=== PATIENT | male | born 1985 | race Caucasian/White ===

== ENCOUNTER 2021-02-25 13:46 | Outpatient (REF) | payer OTHER, SELFPAY ==
--- NOTE | ~2021-02-25 | MM_ITS ---
EXAMINATION: MM DIAGNOSTIC DIGITAL BREAST TOMOSYNTHESIS, BILATERAL US DIAGNOSTIC ULTRASOUND BREAST, BILATERAL CLINICAL INFORMATION: 35-year-old male with bilateral retroareolar tenderness for approximately one year. Transient fullness left breast, recently resolved. No prior breast imaging. COMPARISON: None (current study represents initial baseline exam). TECHNIQUE: Digital breast tomosynthesis is performed in both the craniocaudal and mediolateral oblique views along with computer-aided detection (CAD). Synthesized 2D images are generated from the tomosynthesis. Additional exaggerated right CC and additional right MLO view are provided. Ultrasound of each breast is targeted to the retroareolar and periareolar regions. Grayscale imaging and color Doppler are performed without and with harmonics. FINDINGS: There are scattered areas of fibroglandular density (ACR BI-RADS breast composition Category b). There is bilateral symmetric retroareolar mild to moderate gynecomastia pattern. There is no mass or architectural abnormality. No abnormal calcifications. The axilla and skin contours are unremarkable. Ultrasound targeted to both breasts shows no cystic or solid mass, architectural abnormality, or focal duct ectasia. No skin thickening or edema tracking in the soft tissue planes. Results are discussed with the patient at time of visit. MM/MM tomosynthesis screening BI IMPRESSION: [id number] bilateral retroareolar gynecomastia. Unremarkable bilateral breast ultrasound. ASSESSMENT: BI-RADS 2: Benign RECOMMENDATION: Patient may be managed based on the clinical impression.
== END 2021-02-25 13:47 | disposition home or self-care (01) ==
LOC: HO.MAMMO 13:46
PROVIDERS: Visit Provider Internal Medicine Endocrinology, Diabetes & Metabolism
DX: Z12.31 Encounter for screening mammogram for malignant neoplasm of breast (principal); N62 Hypertrophy of breast
CPT/HCPCS: 76642; 77063; 77067

== ENCOUNTER 2021-05-09 02:27 | Emergency (ER) | payer OTHER, SELFPAY ==
[2021-05-09 02:29] VITALS: BP 149/93; PULSE 95; RESP 18; TEMP 36.9; O2SAT 97; BMI 43.5
--- NOTE | 2021-05-09 04:09 | ED_ITS ---
HPI - Fall General Chief Complaint: Fall Stated Complaint: fall/lac Time Seen by Provider: 05/09/21 03:22 Source: patient Mode of arrival: ambulatory Limitations: no limitations History of Present Illness HPI Narrative: Patient comes emergency room complaining of multiple lacerations to the face, especially the forehead and the nose. Patient states that he tripped and hit a glass shelf with his face. Patient did not lose consciousness. Patient on blood thinners. Related Data Allergies Allergy/AdvReac Type Severity Reaction Status Date / Time No Known Allergies Allergy Unverified 03/22/20 15:26 [No Known Allergies*] Review of Systems Review of Systems: Constitutional : No Weight loss, No Fever, No Chills, No Night Sweats, No Fatigue, No Malaise ENT/Mouth : No Hearing loss, No Ear Pain, No Nasal Congestion, No Sinus Pain, No Hoarseness, No sore throat, No Rhinorrhea, No Swallowing Difficulty Eyes: No Eye Pain, No Swelling, No Redness, No Foreign Body, No Discharge, No Vision Changes Cardiovascular : No Chest Pain, No SOB, No Dyspnea on Exertion, No Orthopnea, No Edema, No Palpitations Respiratory : No Cough, No Sputum, No Wheezing, No Smoke Exposure, No Dyspnea Gastrointestinal : No Nausea, No Vomiting, No Diarrhea, No Constipation, No a bdominal Pain, No Hematochezia, No Melena Genitourinary : no irregular bleeding, No Dysuria, No Urinary Frequency, No Hematuria, No Urinary Incontinence, No Urgency, No Flank Pain, No Urinary Flow Changes, No Hesitancy Musculoskeletal : No joint pain, No Myalgias, No Joint Swelling Skin : Multiple skin lacerations to forehead and nose Neuro : No Weakness, No Numbness, No Paresthesias, No Loss of Consciousness, No Dizziness, No Headache Psych : No Anxiety/Panic, No Depression, No SI/HI/AH/VH, No Social Issues, Heme/Lymph: No Bruising, No Bleeding,No Lymphadenopathy Endocrine : No Polyuria, No Polydipsia, No Temperature Intolerance PMFSH Social History Social History Advance Directives: No Advance Directives Information Provided: Yes Physical Exam Vital Signs: Vital Signs: Last Vital Signs Temp 98.4 F 05/09/21 02:29 Pulse 95 05/09/21 02:29 Resp 18 05/09/21 02:29 BP 149/93 H 05/09/21 02:29 Pulse Ox 97 05/09/21 02:29 Body Mass Index 43.5 Const: Other: Appearance: Alert. Oriented X3. No acute distress. Eyes: Pupils equal, round and reactive to light. ENT: Pharynx normal. Neck: Normal inspection. Neck supple. No lymph nodes noted. No crepitus CVS: Normal heart rate and rhythm. Pulses normal. Normal S1 and S2 Respiratory: No respiratory distress. Breath sounds normal. No Wheezing. No rales Abdomen: Soft and nontender. No rigidity. No distention. good BS x4 Skin: Skin warm and dry. Multiple deep and superficial lacerations to the right side of the face, especially forehead, deep lacerations to the nose, lateral aspect on the right side Extremities: No lower extremity edema. No lower extremity edema. No Lacerations. No Rash Neuro: Oriented X 3. No motor deficit. No sensory deficit. Moving all extermities. No slurred speech. Course Course Course Narrative: Patient tolerated well the procedure, not all the lacerations in the face requires stitches Procedures Laceration Laceration 1: Site: face Side (If applicable): right Size (cm): 5 Description: linear and irregular Depth: simple, single layer Local Anesthetic: lidocaine 1% Amount of anesthesia used (mL): 8 Pre-repair: wound explored Skin layer closed with: nylon Size (cm): 6-0 Number of sutures: 14 Technique: simple, interrupted Laceration 2: Site: face Side (If applicable): right Size (cm): 1 Description: linear and irregular Local Anesthetic: lidocaine 1% Amount of anesthesia used (mL): 1 Skin layer closed with: nylon Size (cm): 6-0 Number of sutures: 3 Discharge Plan Discharge Clinical Impression: Laceration of face Patient Disposition: Home, Self-Care Instructions: Facial Laceration (ED) Additional Instructions: Your stitches need to be removed in 7-10 days. If you experience any significant pain, bleeding, see pus drainage, developed fever, anything abnormal, please return to the emergency room. Please follow-up with your primary care physician tomorrow. If you have any worsening or new symptoms, please return to the emergency room or call 911 Stand Alone Forms: Work/School Release
[2021-05-09] MEDS: Lidocaine HCl 2 % MPF 5 ML VIAL 15 ML INFILTRATI (04:22)
== END 2021-05-09 06:09 | disposition home or self-care (01) ==
PROVIDERS: Emergency Provider Emergency Medicine
DX: S01.21XA Laceration without foreign body of nose, initial encounter (principal); S01.81XA Laceration without foreign body of other part of head, initial encounter; W01.110A Fall on same level from slipping, tripping and stumbling with subsequent striking against sharp glass, initial encounter; Y93.9 Activity, unspecified; Y92.9 Unspecified place or not applicable; Y99.9 Unspecified external cause status
CPT/HCPCS: 12014; 99283; 99284

== ENCOUNTER 2021-05-13 14:24 | Emergency (ER) | payer OTHER, SELFPAY ==
[2021-05-13 14:42] VITALS: BP 128/75; PULSE 97; RESP 21; TEMP 37.1; O2SAT 94; BMI 43.6
--- NOTE | 2021-05-13 16:10 | ED.RECABL ---
HPI - Recheck/Abnormal Lab/Rx General Chief Complaint: General Medical Stated Complaint: wound check Time Seen by Provider: 05/13/21 15:58 Source: patient Mode of arrival: ambulatory Limitations: no limitations History of Present Illness complaint: suture/staple removal Initial visit for: laceration Returns today for: staple/stitch removal Symptoms since prior visit: no new symptoms Context: planned re-check Associated symptoms: none Related Data Previous Rx's Medication Instructions Recorded cephalexin 500 mg capsule 500 mg PO Q6H 10 Days #40 cap 05/13/21 Allergies Allergy/AdvReac Type Severity Reaction Status Date / Time No Known Allergies Allergy Unverified 03/22/20 15:26 [No Known Allergies*] Review of Systems Review of Systems: Constitutional : No Fever, No Chills, Cardiovascular : No Chest Pain, No SOB Respiratory : No Dyspnea Gastrointestinal : No abdominal pain Musculoskeletal : No Joint Swelling Skin : positive healing skin laceration, No Foreign bodies, No rash, No surrounding erythema Neuro : No Weakness, No Numbness/tingling Psych : No SI/HI/thoughts of self injury Yes all other systems are reviewed and are negative [facility] Past Medical History Attestation statement: The following information was validated with the patient. Social History Social History Advance Directives: No Advance Directives Information Provided: No Physical Exam Vital Signs: Vital Signs: Last Vital Signs Temp 98.8 F 05/13/21 14:42 Pulse 97 05/13/21 14:42 Resp 21 H 05/13/21 14:42 BP 128/75 05/13/21 14:42 Pulse Ox 94 05/13/21 14:42 Body Mass Index 43.6 vital signs have been reviewed as normal and appeared to be correct. Blood pressure normal Heart rate normal. Respiration rate normal. Temperature normal. Oxygen saturation normal. Appearance: Alert. Oriented X3. No acute distress. Head: Normal external exam. Normocephalic. Atraumatic. Eyes: PERRLA. EOMI. Conjunctiva and sclera normal. Eyelids normal. ENT: Pharynx normal. Uvula midline. Moist mucous membranes. Neck: Normal inspection. Neck supple. FROM. CVS: Normal heart rate and rhythm. Respiratory: No respiratory distress. Painless inspiration. Skin: Skin warm and dry. Normal skin color. Normal skin turgor. Patient with 14 sutures noted to the right nose with mild surrounding erytherma no purulent drainage or streaking noted. 4 sutures to the right forehead with mild surrounding erythema no purulent drainage/streaking noted. Otherwise no additional rashes/lesions/lacerations noted. Extremities: No lower extremity edema. Extremities exhibit normal range of motion. Extremities nontender. Neuro: Oriented X 3. No motor deficit. No sensory deficit. Reflexes normal. Normal steady gait. No focal neuro deficits noted. Vascular: + radial pulses/+ 2 distal pedal pulses/+2 dorsalis pedis b/l. Normal cap refill. No cyanosis noted to upper extremity nails and lower extremity toes nails. Course Course Course Narrative: Patient now status post suture removal. I removed 14 sutures to the right nose and 3 sutures to the right forehead. Mild surrounding erythema to both sites. No streaking/induration/fluctuance. Patient tolerated procedure well. Will DC home with instructions return if any new or worsening symptoms to follow up with primary care provider. Patient understands agrees with this plan. MDM - Recheck/Abnormal Lab/Rx Medical Records Attestation: I reviewed the patient's medical records. Discharge Plan Discharge Clinical Impression: Visit for suture removal Patient Disposition: Home, Self-Care Instructions: Stitches Removal (ED) Prescriptions: New cephalexin 500 mg capsule 500 mg PO Q6H 10 Days Qty: 40 RF: 0 Referrals: Troy Morris NP [Primary Care Provider] - 2 days Print Language: Malay
== END 2021-05-13 16:19 | disposition home or self-care (01) ==
PROVIDERS: Emergency Provider Emergency Medicine; PCP Nurse Practitioner Family
DX: Z48.00 Encounter for change or removal of nonsurgical wound dressing (principal); Z79.899 Other long term (current) drug therapy
CPT/HCPCS: 99283

== ENCOUNTER → 2021-09-05 09:27 | Outpatient (BNVA) | payer OTHER, SELFPAY | PROVIDERS: PCP Nurse Practitioner Family; Visit Provider Surgery Vascular Surgery | DX: I83.11 Varicose veins of right lower extremity with inflammation (principal) | CPT/HCPCS: 99202 ==

== ENCOUNTER 2021-09-11 12:51 | Outpatient (REF) | payer OTHER, SELFPAY ==
--- NOTE | ~2021-09-11 | US_ITS ---
EXAMINATION: US LOWER EXTREMITY VENOUS (REFLUX EXAM), BILATERAL CLINICAL INDICATION: This is a 36-year-old male with the venous insufficiency and varicose veins. COMPARISON: None. TECHNIQUE: Color flow triplex imaging and compression Doppler was performed to evaluate both the deep and the superficial systems bilaterally. To evaluate the superficial system, the examination was performed in the upright position. Color-flow Doppler ultrasound and compression ultrasound were utilized. In addition, maneuvers were utilized to demonstrate reflux. FINDINGS: 1. DEEP VENOUS ULTRASOUND OF THE RIGHT LOWER EXTREMITY: Common Femoral Vein: Compressible, normal respiratory variation and augmented flow. Femoral vein: Compressible, normal color flow and augmentation. Popliteal Vein: Compressible, normal augmentation. Deep Reflux: There is no evidence of reflux in the deep system in either the common femoral vein or the popliteal vein. There is no evidence of a Carrera's cyst. 2. SUPERFICIAL ULTRASOUND WITH DOPPLER OF RIGHT LOWER EXTREMITY: GREAT SAPHENOUS VEIN: Saphenofemoral Junction: 0.4 cm Mid Thigh: 0.3 cm Above Knee: 0.2 cm Below Knee: 0.3 cm Mid Calf: 0.3 cm Ankle: 0.3 cm GSV REFLUX: No evidence of reflux. DUPLICATED GREAT SAPHENOUS VEIN: None SMALL SAPHENOUS VEIN: Proximal: 0.4 cm Distal: 0.3 cm SSV REFLUX: No evidence of reflux. VEIN OF GIACOMINI: None Imaged. PERFORATORS: There is a 0.2 cm mid thigh track maintainer without reflux. VARICOSITIES: There are 0.3 mid thigh and distal thigh varicose veins, respectively. No reflux is seen. 3. DEEP VENOUS ULTRASOUND OF THE LEFT LOWER EXTREMITY: Common Femoral Vein: Compressible, normal respiratory variation and augmented flow. Femoral Vein: Compressible, normal color flow and augmentation. Popliteal Vein: Compressible, normal augmentation. Deep Reflux: There is no evidence of reflux in the deep system in either the common femoral vein or the popliteal vein. There is no evidence of a Carrera's cyst. 4. SUPERFICIAL ULTRASOUND WITH DOPPLER OF LEFT LOWER EXTREMITY: GREAT SAPHENOUS VEIN: Saphenofemoral Junction: 0.8 cm. There is no reflux. Mid Thigh: 0.5 cm. The reflux time is 1136 ms. Above Knee: 0.3 cm. There is no reflux. Below Knee: 0.2 cm. The reflux time is 1404 ms. Mid Calf: 0.3 cm. There is no reflux. Ankle: 0.3 cm. There is no reflux. GSV REFLUX: There is no reflux at the saphenofemoral junction. There are isolated areas of reflux seen. DUPLICATED GREAT SAPHENOUS VEIN: There is a 0.4 cm duplicated lateral great saphenous vein without evidence of reflux. SMALL SAPHENOUS VEIN: Proximal: 0.5 cm Distal: 0.3 cm SSV REFLUX: No evidence of reflux. VEIN OF GIACOMINI: None Imaged. PERFORATORS: There is a 0.3 cm proximal calf track maintainer without reflux. VARICOSITIES: There are multiple varicosities in the proximal distal thigh measuring 0.4 cm, 0.5 cm, 0.6 cm. These all have greater than one second of reflux. US/US venous duplex LE BI IMPRESSION: 1. There is a patent right great saphenous vein without evidence of reflux. 2. There is a patent right small saphenous vein without evidence of reflux. 3. There are varicose veins in the right thigh without evidence of reflux. 4. There is a patent left great saphenous vein without reflux at the saphenofemoral junction. Isolated areas of reflux are seen. 5. There is a patent left small saphenous vein without reflux. 6. There are multiple varicose veins in the left thigh with greater than one second of reflux.
== END 2021-09-11 12:52 | disposition home or self-care (01) ==
LOC: HO.US 12:51
PROVIDERS: Visit Provider Surgery Vascular Surgery
DX: I83.11 Varicose veins of right lower extremity with inflammation (principal)
CPT/HCPCS: 93970

== ENCOUNTER → 2021-10-03 13:04 | Outpatient (BNVA) | payer OTHER, SELFPAY | PROVIDERS: PCP Nurse Practitioner Family; Visit Provider Surgery Vascular Surgery | DX: I83.11 Varicose veins of right lower extremity with inflammation (principal); I73.00 Raynaud's syndrome without gangrene | CPT/HCPCS: 99212 ==

== ENCOUNTER 2023-02-25 09:30 | Outpatient (AMB) | payer OTHER, SELFPAY ==
--- NOTE | 2023-02-25 09:33 | A.OFFVIS_ITS ---
Intake Vital Signs 02/25/23 09:39 Height 6 ft 2 in Weight 312 lb 6 oz BMI 40.1 BP 129/74 Blood Pressure Location Lt brachial Position Sitting Pulse 100 Intake Visit Reasons: Ventral Hernia Intake Note: Patient is seen in office for evaluation and treatment of a ventral hernia. Patient c/o:onset 2yrs, has increase in size, admits to pain and discomfort, sharp pain when bending over, at times nausea, vomit, admits diarrhea and const ipation, no prior imaging Commercial Photographer Required: No Accompanied by: Self / Same As Patient Allergies ethinyl estradiol [From [facility] (91)] Allergy (Mild, Verified 02/25/23 09:39) Unknown levonorgestrel [From [facility] (91)] Allergy (Mild, Verified 02/25/23 09:39) Unknown Medication List - Last Reconciled 02/25/23 by Brandt Coto MD gabapentin 300 mg PO TID testosterone mg subcut HPI HPI Comments History of Present Illness Details 37-year-old male patient presenting for evaluation of a ventral hernia. He began to note the lump approximately 2 years ago. The lump gradually increased in size and is now causing some discomfort. The lump seems to increase in size with lifting and straining or reduced in the supine position. Denies any previous surgery in this location. He denies nausea, vomiting, fever, chills, diarrhea, or constipation. He is requesting repair this hernia. [facility] Social History Patient Tobacco Use Status: Current everyday Tobacco user Tobacco use type: Cigarette Cigarettes Per Day: 10 Review of Systems Const All systems reviewed & are unremarkable except as noted in HPI and below Denies chills, Denies fever(s), Denies headache(s), Denies poor appetite and Denies weakness ENT Denies headache(s) Card Denies chest pain, Denies irregular heart rhythm, Denies palpitations and Denies dyspnea Resp Denies cough, Denies excessive phlegm production and Denies dyspnea GI Denies abdominal pain, Denies bloating, Denies change in bowel habits, Denies constipation, Denies heartburn, Denies diarrhea, Denies nausea and Denies vomiting Denies difficulty urinating and Denies urinary frequency Musc Denies back pain, Denies muscle weakness and Denies numbness Skin/Breast Denies changing lesions and Denies unusual bruising Neuro Denies headache(s), Denies numbness, Denies paresthesias and Denies weakness Psych Denies anxiety and Denies depression Endo Denies palpitations [place]/Lymph Denies lymphadenopathy Physical Exam Const General: cooperative and no acute distress Nutritional Appearance: well nourished Orientation/consciousness: patient oriented x3 Limitations: no limitations HEENT Head: Yes normocephalic and Yes atraumatic Ears: hearing grossly normal bilaterally Resp Effort & Inspection: normal respiratory effort, no audible wheezes, no cough and no respiratory distress Cardio Jugular venous distension: no JVD GI Inspection: Yes normal to inspection Palpation (GI): Soft to palpation, nontender, no guarding, not rigid and Hernia present ventral Percussion: Yes normal to percussion Abdomen image: 1. Reducible ventral hernia measuring approximately 4.5 cm in diameter. Hernia increases in size with Valsalva maneuvers but the reduces with light pressure. There is mild tenderness to palpation. Skin Other: Warm, dry, no rash Neuro General: patient oriented x3 Extrem General: Yes no clubbing, cyanosis or edema Assessment & Plan Assessment & Plan (1) Ventral hernia without obstruction or gangrene: Code(s): K43.9 - Ventral hernia without obstruction or gangrene Plan 37-year-old male patient presenting with a gradually enlarging ventral hernia located above the umbilicus. On examination the patient has a reducible ventral hernia measuring approximately 4.5 cm in diameter. I recommended repair of this ventral hernia with mesh. After discussion of the procedure, risks, and alternatives, he consents to the surgery. He will be scheduled as a short-stay surgery at his earliest convenience. Coding Level of Care Code New Pt Level 4 (28253) Diagnoses Ventral hernia without obstruction or gangrene K43.9
[2023-02-25 09:39] VITALS: BP 129/74; PULSE 100; BMI 40.1
== END 2023-02-25 09:45 | disposition home or self-care (01) ==
PROVIDERS: PCP Nurse Practitioner Family; Referring Provider Nurse Practitioner Family; Visit Provider Surgery
DX: K43.9 Ventral hernia without obstruction or gangrene (principal)
CPT/HCPCS: 99204

== ENCOUNTER → 2023-02-25 09:30 | Outpatient (BNVA) | payer OTHER, SELFPAY | PROVIDERS: PCP Nurse Practitioner Family; Referring Provider Nurse Practitioner Family; Visit Provider Surgery | DX: K43.9 Ventral hernia without obstruction or gangrene (principal) | CPT/HCPCS: 99202 ==

== ENCOUNTER 2023-03-11 06:10 | Day surgery (SDC) | payer OTHER, SELFPAY ==
[2023-03-06 13:19] VITALS: BMI 40.1
--- NOTE | 2023-03-10 08:43 | HO.ANESPROP2 ---
Documented by User: Isatu Danielle NP 03/10/23 09:12 HPI - Anesthesia Eval Consult details Narrative: 37yo M for Hernia Repair Ventral w/mesh Methadone daily for OUD PMFSH Active Problems Active Problems: All Active Problems (Updated 03/06/23 @ 13:21 by An Cooley RN) Varicose veins of right lower extremity with inflammation (Acute) Raynauds disease (Acute) Ventral hernia without obstruction or gangrene (Acute) Past Medical History Medical History Bipolar disorder GERD (gastroesophageal reflux disease) PTSD (post-traumatic stress disorder) Raynauds disease Sleep apnea Surgical History Surgical History Hx of toe surgery Social History Social History Patient Tobacco Use Status: Current everyday Tobacco user Tobacco use type: Cigarette Cigarettes Per Day: 10 Use of substances other than those prescribed or required for medical reasons: No Are you DNR?: No Advance Directives: No Advance Directives Information Provided: Yes Advance Directives on File: No Recently lost weight without trying: No Eating poorly because of decreased appetite: No Nutrition Risks: No Nutritional Risk Meds Allergies Allergy/AdvReac Type Severity Reaction Status Date / Time No Known Allergies Allergy Verified 03/11/23 06:13 Home Medications Medication Instructions Recorded Confirmed Last Taken Type gabapentin 300 mg capsule 300 mg PO TID 09/05/21 03/06/23 03/11/23 05:00 History calcium carbonate 500 mg calcium 500 mg PO DAILY 03/06/23 03/06/23 Unknown History (1,250 mg) tablet hydroxyzine HCl 50 mg tablet 50 mg PO BID PRN Anxiety 03/06/23 03/06/23 Unknown History multivitamin 1 tab PO DAILY 03/06/23 03/06/23 Unknown History testosterone cypionate 200 mg/mL 200 mg IM QWEEK 03/06/23 03/06/23 Unknown History intramuscular oil methadone 03/10/23 03/10/23 03/11/23 05:00 History Exam Exam Date and Time: March 10, 2023 0843 Height,Weight and Vital Signs: Height 6 ft 2 in Weight 141.521 kg Assessment and Plan Assessment Anesthesia Assessment: Chart Reviewed Documented by User: Xiomy Rodríguez MD 03/11/23 07:26 PMFSH Past Medical History Medical History Bipolar disorder GERD (gastroesophageal reflux disease) PTSD (post-traumatic stress disorder) Raynauds disease Sleep apnea Surgical History Surgical History Hx of toe surgery History of Problems with Anesthesia: No Social History Social History Patient Tobacco Use Status: Current everyday Tobacco user Tobacco use type: Cigarette Cigarettes Per Day: 10 Use of substances other than those prescribed or required for medical reasons: No Are you DNR?: No Advance Directives: No Advance Directives Information Provided: Yes Advance Directives on File: No Recently lost weight without trying: No Eating poorly because of decreased appetite: No Nutrition Risks: No Nutritional Risk Meds Allergies Allergy/AdvReac Type Severity Reaction Status Date / Time No Known Allergies Allergy Verified 03/11/23 06:13 Home Medications Medication Instructions Recorded Confirmed Last Taken Type gabapentin 300 mg capsule 300 mg PO TID 09/05/21 03/06/23 03/11/23 05:00 History calcium carbonate 500 mg calcium 500 mg PO DAILY 03/06/23 03/06/23 Unknown History (1,250 mg) tablet hydroxyzine HCl 50 mg tablet 50 mg PO BID PRN Anxiety 03/06/23 03/06/23 Unknown History multivitamin 1 tab PO DAILY 03/06/23 03/06/23 Unknown History testosterone cypionate 200 mg/mL 200 mg IM QWEEK 03/06/23 03/06/23 Unknown History intramuscular oil methadone 03/10/23 03/10/23 03/11/23 05:00 History Exam Airway Mallampati Class: III TM Dist: >3cm Neck ROM: Full Loose/Missing/Broken Teeth: No Heart: RRR Lungs: CTA Assessment and Plan Assessment Anesthesia Assessment: Anesthesia Plan Discussed Final Anesthetic Review History of Problems with Anesthesia: No NPO: Yes ASA Class: III Final Preanesthetic Review: Meds/Allgs Chart Reviewed, Consent Obtained/Reviewed and Anes Risks/Benef Reviewed Patient Risk: Intermediate Procedure Risk: Low Anesthetic Plan Anesthetic Plan: GA Disposition: Standard PACU
[2023-03-11 06:27] VITALS: BP 146/92; PULSE 68; RESP 16; TEMP 36.9; O2SAT 95
[2023-03-11] MEDS: Lactated Ringers 1,000 ML 100 ML IVCONT (06:35)
--- NOTE | 2023-03-11 07:28 | MHC.SHP ---
Pre-Procedural Eval Section A Date of Service: 03/11/23 The patient is an INPATIENT: No Changes since office visit: Yes Patient answered all questions; No Cold of Flu in the past 2 weeks, No New Medical Problems and No Changes in Medication The History & Physical has been completed within 30 days and I have reviewed it.: Yes Section B Chief Complaint: Ventral hernia without obstruction or gangrene Allergies: Allergies Allergy/AdvReac Type Severity Reaction Status Date / Time No Known Allergies Allergy Verified 03/11/23 06:13 Plan Diagnosis/Plan: Unchanged I have reviewed the history and physical and performed a pertinent physical examination on my patient. No changes have occurred unless specified. Time Spent With Patient Time: Total time managing care of this patient today ____ minutes.
--- NOTE | 2023-03-11 08:41 | P.OP_ITS ---
Operative Note Operative Note Date of Service: 03/11/23 Narrative: Preoperative diagnosis: Ventral hernia Postoperative diagnosis: Same Procedure: Repair of ventral hernia with mesh Surgeon: Brandt Coto MD Fitting Room Associate: SHU Delatorre, SHU Bonds Anesthesia: General endotracheal Indications for procedure: 37-year-old male patient presenting with a lump in the upper abdomen just above the umbilicus measuring approximately 6 cm in diameter. The lump with increase in size with lifting and straining and causes mild discomfort. Operative findings: 6 cm fascial defect just above the umbilicus Specimen: None Estimated blood loss: 2 mL Complications: None Procedure details: Patient was brought to the OR and placed in a supine position. After administering general anesthesia patient's abdomen was prepped with ChloraPrep and draped in a sterile fashion. A surgical time-out was called the consent confirmed. Patient received preoperative antibiotics and Venodyne boots were in place. Local anesthesia was infiltrated in the midline just above the hernia these incision was then carried down through subcutaneous tissue up to the hernia sac. Hernia sac was then defined down to the fascial edge. The hernia contents were then reduced into the abdominal cavity. A preperitoneal space was then dissected below the fascia. A 2nd hole slightly inferior to the larger hole was identified. These were connected into 1 large hernia defect. An 8 cm round Ventralex mesh was then obtained. The mesh was deployed within the preperitoneal space. This was then secured in 4 quadrants using 1 Tycron sutures. The fascia was then closed over the mesh using [id number] 1 Tycron sutures. Additional local was infiltrated to the fascia subcutaneous tissue. Wounds were then irrigated with saline solution and suctioned dry. Dermis was then reapproximated using interrupted 3-0 Polysorb sutures. Skin was closed using a running subcuticular 4-0 Polysorb suture. Steri-Strips, 2 x 2 gauze and Tegaderm were then applied. The patient tolerated the procedure well. Sponge, instrument, needle counts reported as correct. The patient was transferred to PACU in stable condition.
[2023-03-11 08:57] VITALS: BP 166/86; PULSE 92; RESP 16; TEMP 36.6; O2SAT 95
[2023-03-11 09:02] VITALS: BP 157/80; PULSE 90; RESP 16; O2SAT 95
[2023-03-11 09:07] VITALS: BP 149/88; PULSE 87; RESP 18; O2SAT 95
[2023-03-11] MEDS: oxyCODONE HCl Immed Release 5 MG TABLET 10 MG PO (09:11)
[2023-03-11 09:12] VITALS: BP 147/85; PULSE 81; RESP 18; O2SAT 95
[2023-03-11 09:27] VITALS: BP 143/84; PULSE 83; RESP 18; TEMP 36.8; O2SAT 95
== END 2023-03-11 09:54 | disposition home or self-care (01) ==
PROVIDERS: PCP Nurse Practitioner Family; Visit Provider Surgery
PROC: (CPT 49593; principal; 2023-03-11 07:30)
DX: K43.9 Ventral hernia without obstruction or gangrene (principal); K21.9 Gastro-esophageal reflux disease without esophagitis; I73.00 Raynaud's syndrome without gangrene; F31.9 Bipolar disorder, unspecified; G47.30 Sleep apnea, unspecified; F43.10 Post-traumatic stress disorder, unspecified; Z79.899 Other long term (current) drug therapy; F17.210 Nicotine dependence, cigarettes, uncomplicated
CPT/HCPCS: 49593; C1781; J0131; J0330; J0690; J1100; J1170; J1885; J2250; J2405; J2795; J3010

== ENCOUNTER → 2023-03-11 06:10 | Outpatient (BNV) | payer OTHER, SELFPAY | PROVIDERS: PCP Nurse Practitioner Family; Visit Provider Surgery | DX: K43.9 Ventral hernia without obstruction or gangrene (principal) | CPT/HCPCS: 49593 ==

== ENCOUNTER 2023-03-20 10:43 | Outpatient (AMB) | payer OTHER, SELFPAY ==
--- NOTE | 2023-03-20 11:05 | MHC.OFFVIS ---
Intake Vital Signs 03/20/23 11:10 Height 6 ft 2 in Weight 310 lb 13.628 oz BMI 39.9 BP 130/82 Blood Pressure Location Lt brachial Position Sitting Intake Visit Reasons: S/P ventral hernia repair w/mesh Intake Note: Patient is seen in office for post op assessment post ventral hernia repair. 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 He reports feeling a pop in his left chest when coughing. He still has some pain but is much improved. He denies nausea, vomiting, fever or chills. PFSH Medical History PTSD (post-traumatic stress disorder) Sleep apnea GERD (gastroesophageal reflux disease) Raynauds disease Bipolar disorder Surgical History H/O ventral hernia repair (03/11/23) Hx of toe surgery Social History Patient Tobacco Use Status: Current everyday Tobacco user Tobacco use type: Cigarette Cigarettes Per Day: 10 Physical Exam Vital Signs: Last Vital Signs BP 130/82 03/20/23 11:10 BMI result Body Mass Index 39.9 Const General: cooperative Nutritional Appearance: average body habitus Orientation/consciousness: patient oriented x3 Resp Effort & Inspection: normal respiratory effort GI Other: Midline incision is clean, dry, and intact without redness or discharge. There is the expected surrounding swelling consistent with a healing ridge. No evidence of recurrent hernia. No evidence of wound infection. Neuro General: patient oriented x3 Extrem General: Yes normal to inspection Assessment & Plan Assessment & Plan (1) Ventral hernia without obstruction or gangrene: Code(s): K43.9 - Ventral hernia without obstruction or gangrene Plan Patient returns 1 week following repair of a ventral hernia with mesh. He tolerated the procedure well the wounds are healing nicely. He should continue to avoid lifting greater than 10 lb and return in 4 weeks for follow-up examination. He is welcome to call sooner for any new concerns. Coding Level of Care Code Global (47632) Diagnoses Ventral hernia without obstruction or gangrene K43.9
[2023-03-20 11:10] VITALS: BP 130/82; BMI 39.9
== END 2023-03-20 11:23 | disposition home or self-care (01) ==
PROVIDERS: PCP Nurse Practitioner Family; Visit Provider Surgery
DX: K43.9 Ventral hernia without obstruction or gangrene (principal)
CPT/HCPCS: 99213

== ENCOUNTER → 2023-03-20 10:43 | Outpatient (BNVA) | payer OTHER, SELFPAY | PROVIDERS: PCP Nurse Practitioner Family; Visit Provider Surgery | DX: Z48.815 Encounter for surgical aftercare following surgery on the digestive system (principal) | CPT/HCPCS: 99212 ==

== ENCOUNTER 2023-03-27 09:54 | Outpatient (AMB) | payer OTHER, SELFPAY ==
--- NOTE | 2023-03-27 09:58 | MHC.OFFVIS ---
Intake Vital Signs 03/27/23 10:04 Height 6 ft 2 in Weight 310 lb 13.628 oz BMI 39.9 Pulse 77 Intake Visit Reasons: Abd pain Intake Note: Patient is seen in office for wound check post ventral hernia repair. 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 He noted increased swelling in the incision was concerned that the hernia had recurred. He reports being constipated but did move his bowels today. He has been taking stool softener which is making his stool mushy like soft serve ice cream. [facility] Medical History PTSD (post-traumatic stress disorder) Sleep apnea GERD (gastroesophageal reflux disease) Raynauds disease Bipolar disorder Surgical History H/O ventral hernia repair (03/11/23) Hx of toe surgery Social History Patient Tobacco Use Status: Current everyday Tobacco user Tobacco use type: Cigarette Cigarettes Per Day: 10 Physical Exam Vital Signs: Last Vital Signs Pulse 77 03/27/23 10:04 BMI result Body Mass Index 39.9 Const General: healthy appearing Nutritional Appearance: average body habitus Orientation/consciousness: patient oriented x3 Limitations: no limitations Resp Effort & Inspection: normal respiratory effort GI Other: Midline incision is clean, dry, and intact. There is a palpable healing ridge or possible small seroma noted below the incision, essentially unchanged from his prior examination. No changes are noted with Valsalva maneuvers. There is no skin change including erythema or warmth to indicate an underlying infection. Skin Other: Warm, dry, no rash Neuro General: patient oriented x3 Assessment & Plan Assessment & Plan (1) Ventral hernia without obstruction or gangrene: Code(s): K43.9 - Ventral hernia without obstruction or gangrene Plan 37-year-old male patient returning for re-evaluation of his abdominal incision due to swelling. Exam reveals postoperative changes suggestive of a small seroma verses normal healing ridge. This should gradually soften over the next month. No changes are noted to indicate an underlying infection or recurrent hernia. He will follow up on his previously scheduled appointment on 04/14/2023. He is welcome to call sooner for any new concerns. Coding Level of Care Code Global (07243) Diagnoses Ventral hernia without obstruction or gangrene K43.9
[2023-03-27 10:04] VITALS: PULSE 77; BMI 39.9
== END 2023-03-27 10:16 | disposition home or self-care (01) ==
PROVIDERS: PCP Nurse Practitioner Family; Visit Provider Surgery
DX: K43.9 Ventral hernia without obstruction or gangrene (principal)
CPT/HCPCS: 99213

== ENCOUNTER → 2023-03-27 09:54 | Outpatient (BNVA) | payer OTHER, SELFPAY | PROVIDERS: PCP Nurse Practitioner Family; Visit Provider Surgery | DX: Z48.815 Encounter for surgical aftercare following surgery on the digestive system (principal) | CPT/HCPCS: 99212 ==

== ENCOUNTER 2023-04-14 09:36 | Outpatient (AMB) | payer OTHER, SELFPAY ==
--- NOTE | 2023-04-14 09:55 | MHC.OFFVIS ---
Intake Vital Signs 04/14/23 10:00 Height 6 ft 2 in Weight 319 lb 10.724 oz BMI 41.0 BP 120/82 Blood Pressure Location Lt brachial Position Sitting Intake Visit Reasons: one month, post ventral hernia repair w/mesh Intake Note: Patient is seen in office for one month follow up visit, post ventral hernia repair. 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 He feels improved with less abdominal pain but does have occasional discomfort when pushing on the incision. He also occasionally has some discomfort on either side of the incision approximately 10-12 cm beyond. He denies nausea, vomiting, fever or chills. His bowels are normal. [facility] Medical History PTSD (post-traumatic stress disorder) Sleep apnea GERD (gastroesophageal reflux disease) Raynauds disease Bipolar disorder Surgical History H/O ventral hernia repair (03/11/23) Hx of toe surgery Social History Patient Tobacco Use Status: Current everyday Tobacco user Tobacco use type: Cigarette Cigarettes Per Day: 10 Physical Exam Const General: healthy appearing Nutritional Appearance: average body habitus Orientation/consciousness: patient oriented x3 Limitations: no limitations Resp Effort & Inspection: normal respiratory effort GI Other: Midline incision is clean, dry, and intact. There is a palpable healing ridge with no palpable seroma/hematoma and no hernia recurrence noted with Valsalva maneuvers. Skin Other: Warm, dry, no rash Neuro General: patient oriented x3 Assessment & Plan Assessment & Plan (1) Ventral hernia without obstruction or gangrene: Code(s): K43.9 - Ventral hernia without obstruction or gangrene Plan 37-year-old male patient status post repair of a ventral hernia with mesh. He tolerated the procedure well and his wounds are healing nicely. He may resume normal activity without restriction and should follow up as needed. Coding Level of Care Code Global (29952) Diagnoses Ventral hernia without obstruction or gangrene K43.9
[2023-04-14 10:00] VITALS: BP 120/82; BMI 41.0
== END 2023-04-14 10:28 | disposition home or self-care (01) ==
PROVIDERS: PCP Nurse Practitioner Family; Visit Provider Surgery
DX: K43.9 Ventral hernia without obstruction or gangrene (principal)
CPT/HCPCS: 99212

== ENCOUNTER → 2023-04-14 09:36 | Outpatient (BNVA) | payer OTHER, SELFPAY | PROVIDERS: PCP Nurse Practitioner Family; Visit Provider Surgery | DX: Z09 Encounter for follow-up examination after completed treatment for conditions other than malignant neoplasm (principal); Z87.19 Personal history of other diseases of the digestive system | CPT/HCPCS: 99212 ==

== ENCOUNTER 2023-11-15 04:16 | Emergency (ER) | payer OTHER, SELFPAY ==
--- NOTE | ~2023-11-15 | XR_ITS ---
EXAMINATION: XR HAND/WRIST, LEFT CLINICAL INFORMATION: History of fall with left wrist and hand pain. COMPARISON: None TECHNIQUE: PA, lateral, and oblique views of the left hand and wrist. FINDINGS: Mildly impacted fracture of the distal radial metaphysis. There is slight buckling of the posteromedial metaphyseal cortex. Also, thin fracture lucency extends longitudinally to involve the lunate facet of the radial articular surface. There is no significant incongruity of the articular surface. There is approximately 0.2 cm of acquired ulna positive variance. The radiocarpal, midcarpal and carpometacarpal joint spaces are maintained. No evidence of carpal bone fracture or carpal subluxation. Metacarpals and phalanges are intact. Soft tissues are mildly swollen around the region of the wrist. XR/XR hand wrist LT IMPRESSION: Acute mildly impacted fracture of the distal radial metaphysis and epiphysis without significant displacement of fragments. No evidence of carpal bone injury.
[2023-11-15 04:26] VITALS: BP 137/81; PULSE 86; RESP 16; TEMP 37.1; O2SAT 98; BMI 38.5
[2023-11-15 06:37] VITALS: BP 133/61; PULSE 64; RESP 18; TEMP 36.4; O2SAT 100
[2023-11-15] MEDS: Acetaminophen 325 MG TABLET 975 MG PO (07:51)
[2023-11-15] MEDS: Ibuprofen 400 MG TABLET PO (07:51)
--- NOTE | 2023-11-15 08:35 | ED_ITS ---
HPI - Extremity Problem General Chief complaint: Extremity Injury, Upper Stated complaint: left wrist swollen Time Seen by Provider: 11/15/23 07:14 Source: patient Mode of arrival: ambulatory History of Present Illness HPI Narrative: 38-year-old male who states he got up in the middle the night tripped and landed on his left hand, he is right-hand dominant and there is now pain at the left wrist with mild swelling, no numbness or tingling and able to move fingers. Related Data Home Medications ?Medication ?Instructions ?Recorded ?Confirmed gabapentin 300 mg capsule 300 mg PO TID 09/05/21 03/27/23 calcium carbonate 500 mg PO DAILY 03/06/23 03/27/23 hydroxyzine HCl 50 mg tablet 50 mg PO BID PRN Anxiety 03/06/23 03/27/23 multivitamin 1 tab PO DAILY 03/06/23 03/27/23 testosterone cypionate 200 mg/mL 200 mg IM QWEEK 03/06/23 03/27/23 intramuscular oil methadone 03/10/23 03/27/23 Previous Rx's ?Medication ?Instructions ?Recorded oxycodone 5 mg tablet 5 mg PO Q6H PRN pain (scale score 03/11/23 7-10) #15 tabs Allergies Allergy/AdvReac Type Severity Reaction Status Date / Time No Known Allergies Allergy Verified 11/15/23 04:29 Review of Systems Review of Systems: Pertinent positives and negatives as stated in HPI [facility] Past Medical History Source: nursing notes reviewed Medical History PTSD (post-traumatic stress disorder) Sleep apnea GERD (gastroesophageal reflux disease) Raynauds disease Bipolar disorder Surgical History H/O ventral hernia repair (03/11/23) Hx of toe surgery Social History Social History Patient Tobacco Use Status: Current everyday Tobacco user Tobacco use type: Cigarette Cigarettes Per Day: 10 Advance Directives: No Advance Directives Information Provided: No Do you have a plan to hurt others: No Plan Physical Exam Vital Signs: Vital Signs: Last Vital Signs Temp 97.6 F 11/15/23 06:37 Pulse 64 11/15/23 06:37 Resp 18 11/15/23 06:37 BP 133/61 11/15/23 06:37 Pulse Ox 100 11/15/23 06:37 O2 Del Method Room Air 11/15/23 06:37 BMI result Body Mass Index 38.5 VITAL SIGNS: Reviewed. GENERAL: Well developed, well nourished, in no acute distress. HEAD: Normocephalic/atraumatic EYES: PERRLA, EOMI LUNGS: Normal breath sounds. No adventitious sounds or accessory muscle use. SpO2<100> CARDIOVASCULAR: Regular rate and rhythm without noted murmurs ABDOMEN: Soft, non-tender, non-distended with bowel sounds. MUSCULOSKELETAL: No tenderness, deformities, or effusions noted on gross inspection. EXTREMITIES: No cyanosis, clubbing or edema. LEFT WRIST: Mild swelling at the radial aspect, full range of motion of fingers, good capillary refill and sensation palpable pulse SKIN: Inspection of the skin reveals no rashes NEUROLOGIC: Alert and oriented x 4. Strength and sensation to light touch were grossly intact x 4. Medications Administered Discontinued Medications Generic Name Dose Route Start Last Admin Trade Name Freq PRN Reason Stop Dose Admin Acetaminophen 975 mg 11/15/23 07:31 11/15/23 07:51 Acetaminophen 325 Mg Tablet PO 11/15/23 07:32 975 mg ONCE ONE Administration Ibuprofen 400 mg 11/15/23 07:31 11/15/23 07:51 Ibuprofen 400 Mg Tablet PO 11/15/23 07:32 400 mg ONCE ONE Administration Medical Decision Making Medical Decision Making MDM Narrative: 38-year-old male with history and clinical presentation, DDX: Fracture versus dislocation X-ray positive for mildly impacted fracture of the distal radial metaphysis without significant displacement, patient placed in a sugar-tong and provided with a sling and given combination analgesics as well as an ice pack. He is otherwise discharged with instructions to follow-up with orthopedics by calling the office on Thursday morning to set up an appointment. Differential Diagnosis Differential Diagnoses: The differential diagnosis associated with the presentation includes Please see the discussion above Admission/Observation Consideration of admission/observation: Escalation of care including admission/observation considered Please see the discussion above Radiology Impression Discussion of test interpretation with radiology: I have reviewed the radiologist's reading. Radiologist Impression: Please see the discussion above External Record Review External record reviewed: Outpatient record, Prior outpatient labs and Prior outpatient radiology Critical Care Time Critical Care Time Critical Care Time: Yes Total Critical Care Time: 30 Attestation: I personally attest to this time spent taking care of the patient. Discharge Plan Discharge Clinical Impression: Closed left radial fracture Patient Disposition: Home, Self-Care Instructions: Arm Fracture in Adults (ED), Splint Care (ED), How to Use a Sling (ED) Additional Instructions: 1. Tylenol 1000 mg, orally, every 6 hours as needed for pain control. Do not exceed 4000 mg within 24 hours. 2. Ibuprofen 400 mg, orally with milk or food, every 6 hours as needed for pain control. 3. Ice for 10-15 minutes, 3 to 4 times a day as needed for additional pain relief. 4. Please call the orthopedic office on Thursday to set up an appointment for re-evaluation. Return to the ER for any worsening symptoms. Prescriptions: No Action hydroxyzine HCl 50 mg Tablet 50 mg PO BID PRN (Reason: Anxiety) testosterone cypionate 200 mg/mL oil 200 mg IM QWEEK multivitamin Tablet 1 tab PO DAILY calcium carbonate 500 mg calcium (1,250 mg) Tablet 500 mg PO DAILY methadone oxycodone 5 mg tablet 5 mg PO Q6H PRN (Reason: pain (scale score 7-10)) Qty: 15 0RF Rx Instructions: Partial Fill upon patient request. gabapentin 300 mg capsule 300 mg PO TID Referrals: Troy Morris MD [Primary Care Provider] - Иван Junior MD [Physician] - (Placed in sugar-tong, isolated left radius fracture) Print Language: Cypriot
[2023-11-15 08:59] VITALS: BP 133/61; PULSE 64; RESP 18; TEMP 36.4; O2SAT 100
== END 2023-11-15 09:00 | disposition home or self-care (01) ==
PROVIDERS: Emergency Provider Student in an Organized Health Care Education/Training Program; PCP Internal Medicine Endocrinology, Diabetes & Metabolism
DX: S52.92XA Unspecified fracture of left forearm, initial encounter for closed fracture (principal); M25.532 Pain in left wrist; W01.0XXA Fall on same level from slipping, tripping and stumbling without subsequent striking against object, initial encounter; Y93.9 Activity, unspecified; Y92.009 Unspecified place in unspecified non-institutional (private) residence as the place of occurrence of the external cause; Y99.8 Other external cause status; Z79.899 Other long term (current) drug therapy
CPT/HCPCS: 29125; 73110; 73130; 99283; 99284

== ENCOUNTER 2023-11-17 08:16 | Outpatient (AMB) | payer OTHER, SELFPAY ==
--- NOTE | 2023-11-17 08:32 | MHC.OFFVIS ---
Intake Visit Reasons: FC-Closed left radial fracture Intake Note: Ranulfo is a 38 year old right hand dominant male who presents today for a evaluation of his left wrist injury, DOI 11/14/23. Patient reports he woke up in the middle of the night and he tripped and fell on his left arm. He states that his pain is mainly having a lot of selling and some pain when he moves his hand a certain way. Allergies No Known Allergies Allergy (Verified 11/17/23 08:32) HPI HPI FC-Closed left radial fracture: Details: 38-year-old right hand dominant male who presents in the office today, as a new patient, for an evaluation of left hand pain. Patient presented to the ED on 11/15/2023 status post getting up in the middle of the night when he tripped and fell landing on his left upper extremity. X-rays were obtained. Patient was placed in a sugar-tong splint and given a sling. While in the office today he confirms a significant amount of edema and some pain when moving his hand in certain directions. [facility] Medical History PTSD (post-traumatic stress disorder) Sleep apnea GERD (gastroesophageal reflux disease) Raynauds disease Bipolar disorder Surgical History H/O ventral hernia repair (03/11/23) Hx of toe surgery Social History (Updated 11/17/23 @ 08:34 by Mimi Trejo) Alcohol intake: never Patient Tobacco Use Status: Current everyday Tobacco user Tobacco use type: Cigarette Cigarettes Per Day: 10 Current occupational status: unemployed Current occupation: right hand dominant Review of Systems Const All systems reviewed & are unremarkable except as noted in HPI and below Physical Exam Const General: cooperative and no acute distress Orientation/consciousness: patient oriented x3 Resp Effort & Inspection: normal respiratory effort and able to speak in complete sentences Cardio Peripheral pulses: Peripheral pulses 2+ throughout Skin General skin exam: no rashes or lesions noted Neuro General: patient oriented x3 Extrem Other: Left hand: Normal to inspection. No ecchymosis, erythema, or edema. Tenderness to palpation at the distal radius. Able to perform full finger flexion, extension, abduction, adduction, finger cross, okay sign, and thumbs up without deficit. Able to make a closed fist. Sensation intact. Capillary refill is brisk. Radial pulse intact. Office Procedures Casting/Splints 07507-Csfn/Wrist Cast Application Procedure code (CPT) selection complete Fracture Care Fracture Billing Code: Fracture Billing Code Assessment & Plan Assessment & Plan (1) Fracture of left distal radius: Code(s): S52.502A - Unspecified fracture of the lower end of left radius, initial encounter for closed fracture Category: Medical Qualifiers: Encounter type: initial encounter Fracture morphology: unspecified fracture morphology Fracture type: closed Qualified Code(s): S52.502A - Unspecified fracture of the lower end of left radius, initial encounter for closed fracture Plan Mr. Theodore is a 38-year-old right hand dominant male who presents in the office today, as a new patient, for an evaluation of left hand pain. Patient presented to the ED on 11/15/2023 status post getting up in the middle of the night when he tripped and fell landing on his left upper extremity. X-rays were obtained. Patient was placed in a sugar-tong splint and given a sling. While in the office today he confirms a significant amount of edema and some pain when moving his hand in certain directions. Patient was placed into a custom made short arm cast. Follow up will be in 1 week with cast off repeat x-rays to monitor for any displacement, or sooner if needed. X-rays of the left wrist/hand which were obtained while in the office today and were reviewed by me, Stormy Jimenes PA-C, redemonstrated a left distal radius fracture. X-rays of the left wrist, obtained on 11/15/2023 revealed: Acute mildly impacted fracture of the distal radial metaphysis and epiphysis without significant displacement of fragments. Orders: Orders XR wrist LT min 3V Today M25.539 - Pain in unspecified wrist Patient Instructions: Scribed by Beth Parker medical research scientist, for Stormy Jimenes PA-C on 11/17/2023 at 8:34 am, EST. Coding Level of Care Code New Pt Level 4 (88762) Diagnoses Closed fracture of distal end of left radius, unspecified fracture morphology, initial encounter S52.502A Encounter type: initial encounter Fracture morphology: unspecified fracture morphology Fracture type: closed CPT Codes Casting - CPT: 33261-Zywx/Wrist Cast Application ([id number]) Fracture Care - Fracture Billing Code: Fracture Billing Code ([id number])
== END 2023-11-17 09:19 | disposition home or self-care (01) ==
PROVIDERS: PCP Internal Medicine Endocrinology, Diabetes & Metabolism; Visit Provider Physician Assistant
DX: S52.502A Unspecified fracture of the lower end of left radius, initial encounter for closed fracture (principal)
CPT/HCPCS: 25600; 99203

== ENCOUNTER 2023-11-17 10:13 | Outpatient (REF) | payer OTHER, SELFPAY ==
--- NOTE | ~2023-11-17 | XR_ITS ---
EXAMINATION: XR WRIST, LEFT CLINICAL INFORMATION: Pain in the wrist COMPARISON: Prior x-ray 11/15/2023. TECHNIQUE: PA, lateral, and oblique views of the left wrist. FINDINGS: Minimally displaced intra-articular fracture the distal radius redemonstrated unchanged in alignment. There is slight posterior displacement of the distal radius fracture appreciated on the lateral projection. Remaining bones joints and soft tissues unremarkable.. XR/XR wrist LT min 3V IMPRESSION: Intra-articular distal radius fracture unchanged in alignment.
== END 2023-11-17 10:14 | disposition home or self-care (01) ==
LOC: HO.HOSX 10:13
PROVIDERS: Visit Provider Physician Assistant
DX: S52.592A Other fractures of lower end of left radius, initial encounter for closed fracture (principal); W18.30XA Fall on same level, unspecified, initial encounter; Y93.89 Activity, other specified; Y92.009 Unspecified place in unspecified non-institutional (private) residence as the place of occurrence of the external cause; Y99.9 Unspecified external cause status
CPT/HCPCS: 25600; 73110; 99202

== ENCOUNTER 2023-11-24 09:37 | Outpatient (REF) | payer OTHER, SELFPAY ==
--- NOTE | ~2023-11-24 | XR_ITS ---
EXAMINATION: XR WRIST, LEFT CLINICAL INFORMATION: Pain in nonspecified wrist. COMPARISON: 11/17/2023 TECHNIQUE: PA, lateral, and oblique views of the left wrist. FINDINGS: Redemonstration of a minimally displaced intra-articular fracture of the distal radius, unchanged in alignment. Redemonstration of slight posterior displacement of the distal radial fracture on the lateral view. Fracture lines are less conspicuous indicating some interval bridging callus formation. XR/XR wrist LT min 3V IMPRESSION: Redemonstration of a minimally displaced intra-articular fracture of the distal radius unchanged in alignment. Fracture lines are less conspicuous indicating some interval bridging callus formation.
== END 2023-11-24 09:38 | disposition home or self-care (01) ==
LOC: HO.HOSX 09:37
PROVIDERS: PCP Internal Medicine Endocrinology, Diabetes & Metabolism; Visit Provider Physician Assistant
DX: S52.502D Unspecified fracture of the lower end of left radius, subsequent encounter for closed fracture with routine healing (principal); X58.XXXD Exposure to other specified factors, subsequent encounter
CPT/HCPCS: 29085; 73110; 99212

== ENCOUNTER 2023-11-24 09:37 | Outpatient (AMB) | payer OTHER, SELFPAY ==
--- NOTE | 2023-11-24 09:55 | MHC.OFFVIS ---
Intake Visit Reasons: OV-Closed left radial fracture-cast off/w/xray Intake Note: Ranulfo is a 38 year old right hand dominant male who presents today for a evaluation of his left wrist injury, DOI 11/14/23. Cast was removed and x rays were updated. Patient reports he is doing well, he noticed some swelling when he had the cast but other times it felt loose. Still having tingling in his left thumb, he was wondering if it was from the cast, however since its removed he continues to have that sensation. Patient reports when he drops an item and when he tries to catch it he feels a tingling/electric sensation in his thumb down to the radial aspect of the wrist. Allergies No Known Allergies Allergy (Verified 11/24/23 10:01) HPI HPI OV-Closed left radial fracture-cast off/w/xray: Details: 38-year-old right hand dominant male who presents in the office today for a follow up of a left distal radius fracture, which occurred on 11/14/2023. I last saw the patient in the office on 11/17/2023 when he was placed in a short arm cast. While in the office today the patient reports he is doing well. He confirms intermittent mild edema while in the cast. Confirms tingling in the left thumb in and out of the cast. He also describes a tingling or electric sensation when dropping items or attempting to catch items with his left hand. These motions cause this sensation to radiate down from the left thumb to the radial aspect of the left wrist. [facility] Medical History PTSD (post-traumatic stress disorder) Sleep apnea GERD (gastroesophageal reflux disease) Raynauds disease Bipolar disorder Surgical History H/O ventral hernia repair (03/11/23) Hx of toe surgery Social History (Updated 11/17/23 @ 08:34 by Mimi Trejo) Alcohol intake: never Patient Tobacco Use Status: Current everyday Tobacco user Tobacco use type: Cigarette Cigarettes Per Day: 10 Current occupational status: unemployed Current occupation: right hand dominant Review of Systems Const All systems reviewed & are unremarkable except as noted in HPI and below Physical Exam Const General: cooperative and no acute distress Orientation/consciousness: patient oriented x3 Resp Effort & Inspection: normal respiratory effort and able to speak in complete sentences Cardio Peripheral pulses: Peripheral pulses 2+ throughout Skin General skin exam: no rashes or lesions noted Neuro General: patient oriented x3 Extrem Other: Left hand: Normal to inspection. No ecchymosis, erythema, or edema. Tenderness to palpation at the distal radius. Able to perform full finger flexion, extension, abduction, adduction, finger cross, okay sign, and thumbs up without deficit. Able to make a closed fist. Sensation intact. Capillary refill is brisk. Radial pulse intact. Office Procedures Casting/Splints Other Splint (thermal molded splint off the shelf) Additional procedure code (CPT) needed Assessment & Plan Assessment & Plan (1) Fracture of left distal radius: Code(s): S52.502A - Unspecified fracture of the lower end of left radius, initial encounter for closed fracture Category: Medical Qualifiers: Encounter type: subsequent encounter Fracture healing: with routine healing Fracture morphology: unspecified fracture morphology Fracture type: closed Qualified Code(s): S52.502D - Unspecified fracture of the lower end of left radius, subsequent encounter for closed fracture with routine healing Plan Mr. Theodore is a 38-year-old right hand dominant male who presents in the office today for a follow up of a left distal radius fracture, which occurred on 11/14/2023. I last saw the patient in the office on 11/17/2023 when he was placed in a short arm cast. While in the office today the patient reports he is doing well. He confirms intermittent mild edema while in the cast. Confirms tingling in the left thumb in and out of the cast. He also describes a tingling or electric sensation when dropping items or attempting to catch items with his left hand. These motions cause this sensation to radiate down from the left thumb to the radial aspect of the left wrist. X-rays were obtained in the office today revealing no further displacement of the fracture; therefore, this may be treated nonoperatively. He was placed in an off the shelf thermal molded splint. He was instructed to treat this like a cast. He may come out for showering and hand washing only and then must return in to the thermal molded splint immediately. Follow up will be in 2 weeks with repeat x-rays, or sooner if needed. X-rays of the left wrist which were obtained while in the office today and were reviewed by me, Stormy Jimenes PA-C, redemonstration of a left distal radius fracture with no further displacement. Orders: Orders XR wrist LT min 3V Today M25.539 - Pain in unspecified wrist XR wrist LT min 3V 11/17/23 M25.539 - Pain in unspecified wrist Patient Instructions: Scribed by Beth Parker certified medical biller, for Stormy Jimenes PA-C on 11/24/2023 at 9:49 am, EST. Coding Level of Care Code Global (05289) Diagnoses Closed fracture of distal end of left radius with routine healing, unspecified fracture morphology, subsequent encounter S52.502D Encounter type: subsequent encounter Fracture healing: with routine healing Fracture morphology: unspecified fracture morphology Fracture type: closed
== END 2023-11-24 10:38 | disposition home or self-care (01) ==
PROVIDERS: PCP Internal Medicine Endocrinology, Diabetes & Metabolism; Visit Provider Physician Assistant
DX: S52.502D Unspecified fracture of the lower end of left radius, subsequent encounter for closed fracture with routine healing (principal)
CPT/HCPCS: 29085; 99024

== ENCOUNTER 2023-12-11 08:28 | Outpatient (REF) | payer OTHER, SELFPAY ==
--- NOTE | ~2023-12-11 | XR_ITS ---
EXAMINATION: XR WRIST, LEFT CLINICAL INFORMATION: Pain in unspecified wrist COMPARISON: None available. TECHNIQUE: PA, lateral, and oblique views of the left wrist. FINDINGS: Again seen is a minimally displaced intra-articular fracture of the distal radius, unchanged in alignment. Again seen is slight posterior displacement of the distal radial fracture on the lateral view. Sclerosis is seen at the fracture sites. XR/XR wrist LT min 3V IMPRESSION: Healing minimally displaced intra-articular fracture of the distal radius.
== END 2023-12-11 08:29 | disposition home or self-care (01) ==
LOC: HO.HOSX 08:28
PROVIDERS: Visit Provider Physician Assistant
DX: M25.532 Pain in left wrist (principal); S52.502D Unspecified fracture of the lower end of left radius, subsequent encounter for closed fracture with routine healing; X58.XXXD Exposure to other specified factors, subsequent encounter
CPT/HCPCS: 73110; 99212

== ENCOUNTER 2023-12-11 08:34 | Outpatient (AMB) | payer OTHER, SELFPAY ==
[2023-12-11 08:51] VITALS: BMI 38.5
--- NOTE | 2023-12-11 08:51 | A.OFFVIS_ITS ---
Vital Signs 12/11/23 08:51 Height 6 ft 2 in Weight 300 lb BMI 38.5 Intake Visit Reasons: OV - Left Distal Radius Fx 11/14/23 Intake Note: Ranulfo is a 38 year old right hand dominant male who presents today for a evaluation of his left wrist injury, DOI 11/14/23. Patient reports he is doing well, however feeling some discomfort and pain with little movements. He noticed a little bump on the dorsal aspect of the wrist. Patient states having some numbness in his thumb. Allergies No Known Allergies Allergy (Verified 12/11/23 08:51) HPI HPI OV - Left Distal Radius Fx 11/14/23: Details: 38-year-old right hand dominant male who presents in the office today for a follow-up of a left distal radius fracture, which occurred on 11/14/2023. I last saw the patient in the office on 11/24/2023 when it was decided to proceed with non-operative treatment. He was placed in a thermal molded splint. While in the office today the patient reports he is doing well. He confirms some discomfort and pain with slight movements. He claims to have a bump on the dorsal aspect of the left wrist. He also reports some numbness in the left thumb. [facility] Medical History PTSD (post-traumatic stress disorder) Sleep apnea GERD (gastroesophageal reflux disease) Raynauds disease Bipolar disorder Surgical History H/O ventral hernia repair (03/11/23) Hx of toe surgery Social History Alcohol intake: never Patient Tobacco Use Status: Current everyday Tobacco user Tobacco use type: Cigarette Cigarettes Per Day: 10 Current occupational status: unemployed Current occupation: right hand dominant Review of Systems Const All systems reviewed & are unremarkable except as noted in HPI and below Physical Exam Vital Signs: BMI result Body Mass Index 38.5 Const General: cooperative, healthy appearing and no acute distress Orientation/consciousness: patient oriented x3 Resp Effort & Inspection: normal respiratory effort and able to speak in complete sentences Cardio Rate: regular rate Peripheral pulses: Peripheral pulses 2+ throughout GI Palpation (GI): Soft to palpation Skin General skin exam: no rashes or lesions noted Lesions: no lesions Rashes: no rashes Neuro General: patient oriented x3 Extrem Other: Left hand: Normal to inspection. No ecchymosis, erythema, or edema. No tenderness to palpation at the distal radius. Able to perform full finger flexion, extension, abduction, adduction, finger cross, okay sign, and thumbs up without deficit. Able to make a closed fist. Sensation intact. Capillary refill is brisk. Radial pulse intact. Assessment & Plan Assessment & Plan (1) Fracture of left distal radius: Code(s): S52.502A - Unspecified fracture of the lower end of left radius, initial encounter for closed fracture Category: Medical Qualifiers: Encounter type: subsequent encounter Fracture healing: with routine healing Fracture morphology: unspecified fracture morphology Fracture type: closed Qualified Code(s): S52.502D - Unspecified fracture of the lower end of left radius, subsequent encounter for closed fracture with routine healing Plan Mr. Theodore is a 38-year-old right hand dominant male who presents in the office today for a follow-up of a left distal radius fracture, which occurred on 11/14/2023. I last saw the patient in the office on 11/24/2023 when it was decided to proceed with non-operative treatment. He was placed in a thermal molded splint. While in the office today the patient reports he is doing well. He confirms some discomfort and pain with slight movements. He claims to have a bump on the dorsal aspect of the left wrist. He also reports some numbness in the left thumb. The patient was transitioned to a velcro wrist splint, off the shelf, in the office today. I educated him that he should continue with his lifting restrictions of nothing greater than a coffee cup or cell phone. A referral for occupational therapy was made today to work on gentle ROM. Follow-up will be in 4 weeks for a ROM check and repeat x-rays, or sooner if needed. X-rays of the left wrist which were obtained while in the office today and were reviewed by me, Stormy Jimenes PA-C, revealed routine healing of a left distal radius fracture. Orders: Orders XR wrist LT min 3V Today M25.539 - Pain in unspecified wrist OT Evaluation and Treatment Today S52.502D - Unspecified fracture of the lower end of left radius, subsequent encounter for closed fracture with routine healing Patient Instructions: Scribed by Beth Parker medical appointment scheduler, for Stormy Jimenes PA-C on 12/11/2023 at 8:36 am, EST. Coding Level of Care Code Global (99001) Diagnoses Closed fracture of distal end of left radius with routine healing, unspecified fracture morphology, subsequent encounter S52.502D Encounter type: subsequent encounter Fracture healing: with routine healing Fracture morphology: unspecified fracture morphology Fracture type: closed
== END 2023-12-11 10:12 | disposition home or self-care (01) ==
PROVIDERS: PCP Internal Medicine Endocrinology, Diabetes & Metabolism; Referring Provider Internal Medicine Endocrinology, Diabetes & Metabolism; Visit Provider Physician Assistant
DX: S52.502D Unspecified fracture of the lower end of left radius, subsequent encounter for closed fracture with routine healing (principal)
CPT/HCPCS: 99024

== ENCOUNTER 2024-01-12 11:03 | Outpatient (REF) | payer OTHER, SELFPAY ==
--- NOTE | ~2024-01-12 | XR_ITS ---
EXAMINATION: XR WRIST, LEFT CLINICAL INFORMATION: Pain in unspecified wrist. COMPARISON: December 11, 2023. TECHNIQUE: Three views of the left wrist. FINDINGS: Redemonstration of minimally displaced intra-articular fracture of the distal radius, similar in alignment. Fracture line is less visible, suggesting some interval bridging callus formation. Redemonstration of slight posterior displacement of the distal radial fracture on the lateral view. XR/XR wrist LT min 3V IMPRESSION: Redemonstration of minimally displaced intra-articular fracture of the distal radius, similar in alignment. Fracture line is less visible, suggesting some interval bridging callus formation.
== END 2024-01-12 11:04 | disposition home or self-care (01) ==
LOC: HO.HOSX 11:03
PROVIDERS: Visit Provider Physician Assistant
DX: S52.502D Unspecified fracture of the lower end of left radius, subsequent encounter for closed fracture with routine healing (principal); Y92.9 Unspecified place or not applicable; Y99.9 Unspecified external cause status; Y93.9 Activity, unspecified
CPT/HCPCS: 73110; 99212

== ENCOUNTER 2024-01-12 11:28 | Outpatient (AMB) | payer OTHER, SELFPAY ==
--- NOTE | 2024-01-12 11:28 | MHC.OFFVIS ---
Intake Visit Reasons: OV - Left Distal Radius Fx 11/14/23 Intake Note: Ranulfo is a 38 year old right hand dominant male who presents today for a evaluation of his left wrist injury, DOI 11/14/23. Patient reports he is doing well, however he is still having some discomfort when moving the towel over his back or putting a shirt on. OT is going well, and he is due for one more appointment. Denies numbness and tingling. Allergies No Known Allergies Allergy (Verified 01/12/24 11:44) HPI HPI OV - Left Distal Radius Fx 11/14/23: Details: Mr. Theodore is a 38-year-old right-hand dominant male who presents to the office today for follow-up of his left injury that occurred on 11/14/2023. At his last appointment on 12/11/2023 he was referred to occupational therapy to work on range of motion exercises. He reports that his range of motion has greatly improved since his last appointment. Denies any pain. [facility] Medical History PTSD (post-traumatic stress disorder) Sleep apnea GERD (gastroesophageal reflux disease) Raynauds disease Bipolar disorder Surgical History H/O ventral hernia repair (03/11/23) Hx of toe surgery Social History Alcohol intake: never Patient Tobacco Use Status: Current everyday Tobacco user Tobacco use type: Cigarette Cigarettes Per Day: 10 Current occupational status: unemployed Current occupation: right hand dominant Review of Systems Const All systems reviewed & are unremarkable except as noted in HPI and below Physical Exam Const General: cooperative, healthy appearing and no acute distress Resp Effort & Inspection: normal respiratory effort and able to speak in complete sentences Cardio Rate: regular rate Peripheral pulses: Peripheral pulses 2+ throughout GI Palpation (GI): Soft to palpation Skin Lesions: no lesions Rashes: no rashes Extrem Other: Right wrist normal to inspection no ecchymosis erythema or edema. No tenderness to palpation over the fracture site at the distal radius. Full wrist flexion and extension, ulnar and radial deviation. Sensation is intact. Capillary refill is brisk. Assessment & Plan Assessment & Plan (1) Fracture of left distal radius: Code(s): S52.502A - Unspecified fracture of the lower end of left radius, initial encounter for closed fracture Category: Medical Qualifiers: Encounter type: subsequent encounter Fracture type: closed Fracture morphology: unspecified fracture morphology Fracture healing: with routine healing Qualified Code(s): S52.502D - Unspecified fracture of the lower end of left radius, subsequent encounter for closed fracture with routine healing Plan Mr. Theodore is a 38-year-old right-hand dominant male who presents to the office today for follow-up of his left injury that occurred on 11/14/2023. At his last appointment on 12/11/2023 he was referred to occupational therapy to work on range of motion exercises. He reports that his range of motion has greatly improved since his last appointment. Denies any pain. Patient reports that he is doing overall very well. He is content with his progress. He will resume back to normal activities as tolerated using pain as his guide. Follow up with Orthopedics p.r.n., sooner if needed. X-rays obtained in the office today were reviewed by me, Stormy Jimenes PA-C, and revealed routine healing of a distal radius fracture. Orders: Orders XR wrist LT min 3V Today M25.539 - Pain in unspecified wrist Coding Level of Care Code Global (13550) Diagnoses Closed fracture of distal end of left radius with routine healing, unspecified fracture morphology, subsequent encounter S52.502D Encounter type: subsequent encounter Fracture type: closed Fracture morphology: unspecified fracture morphology Fracture healing: with routine healing
== END 2024-01-12 12:00 | disposition home or self-care (01) ==
PROVIDERS: PCP Internal Medicine Endocrinology, Diabetes & Metabolism; Referring Provider Internal Medicine Endocrinology, Diabetes & Metabolism; Visit Provider Physician Assistant
DX: S52.502D Unspecified fracture of the lower end of left radius, subsequent encounter for closed fracture with routine healing (principal)
CPT/HCPCS: 99024

== ENCOUNTER 2024-01-14 08:00 | Outpatient (RCR) | payer OTHER, SELFPAY ==
--- NOTE | 2024-01-14 08:40 | MHC.OT.DC ---
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 Ranulfo is now able to ride his bike short distances. Palpated non tender small dorsal radial wrist ganglion. I anticipate continued improvement in strength and function with his HEP and use with daily activities Goals Met Electronically Signed By: Colleen Mayer OT CHT CLT Reviewed/agree with student documentation: Therapist: Please Sign and return to therapist, thank you for your referral.
== END 2024-01-14 08:40 | disposition home or self-care (01) ==
LOC: HO.OT 08:00
PROVIDERS: PCP Nurse Practitioner Family; Visit Provider Physician Assistant
DX: S52.502D Unspecified fracture of the lower end of left radius, subsequent encounter for closed fracture with routine healing (principal)
CPT/HCPCS: 97035; 97110; 97166

== ENCOUNTER 2024-03-15 10:28 | Outpatient (AMB) | payer OTHER, SELFPAY ==
--- NOTE | 2024-03-15 10:40 | A.OFFVIS_ITS ---
Intake Visit Reasons: urinary hesitancy/Testicular Hypofunction Intake Note: New patient is present for Urinary Hesitancy/Testicular Hypofunction Urology Med: Testosterone Antibiotic Allergy: None Blood Thinner: None Patient states that he does have some discomfort and pain when he needs to fully empty his bladder States that he does not always feels the pain PVR: 0ML Allergies No Known Allergies Allergy (Verified 01/12/24 11:44) HPI Comments Details: Ranulfo is a pleasant male. He is a patient of Dr. Morris. He is seen for the following urologic conditions - erectile dysfunction - lower urinary tract symptoms [facility] patient Has been placed on testosterone for low T secondary to opiate impairment Does have T in 700 range with weekly injections This has improved his well being Does have occasional morning erections Erectile dysfunction Trial daily tadalafil Lower urinary tract symptoms Weak stream with urinary hesitancy PVR 0 in office Potential trapped prostate Trial Flomax PFSH Medical History (Updated 03/15/24 @ 11:17 by Jose R Rodriguez MD) Essential hypertension Acromioclavicular (AC) joint injury Opioid dependence Erectile dysfunction Major depression Gynecomastia Testicular hyperfunction PTSD (post-traumatic stress disorder) Sleep apnea GERD (gastroesophageal reflux disease) Raynauds disease Bipolar disorder Surgical History H/O ventral hernia repair (03/11/23) Hx of toe surgery Social History Alcohol intake: never Patient Tobacco Use Status: Current everyday Tobacco user Tobacco use type: Cigarette Cigarettes Per Day: 10 Current occupational status: unemployed Current occupation: right hand dominant Review of Systems Const Denies chills and Denies fever(s) Card Reports no additional complaints and Denies syncope Resp Denies cough GI Denies abdominal pain and Denies heartburn Reports as per HPI and Denies change in libido Neuro Denies syncope Psych Denies change in libido Endo Denies change in libido Physical Exam Const General: cooperative, healthy appearing, comfortable and no acute distress Orientation/consciousness: patient oriented x3 HEENT Face and sinus: Yes normal facial exam Mouth: moist mucous membranes Neck Neck: Yes normal visual inspection, Yes full ROM and Yes trachea midline Chest Chest palpation & inspection: normal inspection of the chest Resp Effort & Inspection: normal respiratory effort, able to speak in complete sentences and no respiratory distress GI Inspection: Yes normal to inspection Back/Spine/Pelvis Cervical Spine: normal cervical lordosis Thoracic/Lumbar Spine: thoracic and lumbar spine normal to inspection Skin General skin exam: no rashes or lesions noted Neuro General: patient oriented x3, gait normal, tone normal and moves all extremities Extrem General: Yes normal to inspection and Yes capillary refill normal Office Procedures Post Void Residual Post Residual Void Post Void Residual (PVR): 0 [id number] Void Residual by ultrasound Assessment & Plan Assessment & Plan (1) Urinary hesitancy due to benign prostatic hyperplasia: Code(s): N40.1 - Benign prostatic hyperplasia with lower urinary tract symptoms; R39.11 - Hesitancy of micturition (2) Erectile dysfunction: Code(s): N52.9 - Male erectile dysfunction, unspecified Category: Medical (3) Hypogonadism in male: Code(s): E29.1 - Testicular hypofunction Category: Medical (4) Urinary hesitancy: Code(s): R39.11 - Hesitancy of micturition Category: Medical (5) Weak urinary stream: Code(s): R39.12 - Poor urinary stream Category: Medical Plan Two month follow-up Orders: Orders US bladder Today R39.12 - Poor urinary stream AMB Post Void Residual by ultrasound Today N40.1 - Benign prostatic hyperplasia with lower urinary tract symptoms, R39.11 - Hesitancy of micturition Medications: New tamsulosin 0.4 mg PO BEDTIME 30 days 30 caps 1RF N40.1 - Benign prostatic hyperplasia with lower urinary tract symptoms, N52.9 - Male erectile dysfunction, unspecified, R35.1 - Nocturia tadalafil 5 mg PO DAILY 90 days 90 tabs 0RF sexual activity N52.9 - Male erectile dysfunction, unspecified Patient Instructions: Imaging studies, laboratory and physical exam results were discussed and reviewed in detail. No major barriers to patient understanding were identified. An opportunity to ask questions regarding the treatment plan was provided. All questions were answered. The patient expressed understanding and agreement with the above treatment plan. The patient is aware they should contact our office by phone for worsening of their current condition or the appearance of new urologic symptoms. Compliance is encouraged with any medications and followup testing that is ordered. It is a privilege to participate in the urologic care of your patient. If you have any questions or concerns regarding treatment for the above conditions, or other urologic issues, please do not hesitate to contact me. The office telephone contact is [phone]. This note is constructed using voice recognition software. While every effort has been made to ensure accuracy clinical medical transcriptionist errors may have been included. Yours sincerely, Dr Jose R Rodriguez MD, NATAL[facility] - Urology Providers of Expert, Compassionate Care for the Genitourinary System Coding Level of Care Code New Pt Level 4 (49597) Diagnoses Urinary hesitancy due to benign prostatic hyperplasia N40.1; R39.11 Erectile dysfunction N52.9 Hypogonadism in male E29.1 Urinary hesitancy R39.11 Weak urinary stream R39.12 CPT Codes Post Residual Void - PVR CPT Code: 43141-Jqld Void Residual by ultrasound ([id number])
== END 2024-03-15 11:36 | disposition home or self-care (01) ==
PROVIDERS: PCP Nurse Practitioner Family; Visit Provider Urology
DX: N40.1 Benign prostatic hyperplasia with lower urinary tract symptoms (principal); R39.11 Hesitancy of micturition; N52.9 Male erectile dysfunction, unspecified; E29.1 Testicular hypofunction; R39.12 Poor urinary stream
CPT/HCPCS: 99204

== ENCOUNTER → 2024-03-15 10:28 | Outpatient (BNVA) | payer OTHER, SELFPAY | PROVIDERS: PCP Nurse Practitioner Family; Visit Provider Urology | DX: N40.1 Benign prostatic hyperplasia with lower urinary tract symptoms (principal); N13.8 Other obstructive and reflux uropathy; N52.9 Male erectile dysfunction, unspecified; E29.1 Testicular hypofunction; R39.11 Hesitancy of micturition; R39.12 Poor urinary stream | CPT/HCPCS: 51798; 99202 ==

== ENCOUNTER 2024-10-11 10:10 | Outpatient (AMB) | payer OTHER, SELFPAY ==
--- NOTE | 2024-10-11 10:11 | MHC.OFFVIS ---
Vital Signs 10/11/24 10:20 Height 6 ft 2 in Weight 280 lb BMI 35.9 BP 132/68 Blood Pressure Location Lt brachial Position Sitting Pulse 80 Intake Visit Reasons: Umbilical hernia Intake Note: Patient is seen in office for evaluation of an umbilical hernia repair. Pt c/o: states hernia came back about 2 months ago, was doing sit up and exercise ball, reducible, denies n/v/d/c L.OV: ventral hernia 04/14/23 Verifying Machine Operator Required: No Accompanied by: Self / Same As Patient Allergies No Known Allergies Allergy (Verified 10/11/24 10:12) Medication List - Last Reconciled 10/11/24 by Brandt Coto MD calcium carbonate 500 mg PO DAILY gabapentin 300 mg PO TID hydroxyzine HCl 50 mg PO BID PRN [methadone ] multivitamin 1 tab PO DAILY tadalafil 5 mg PO DAILY 90 days tamsulosin 0.4 mg PO BEDTIME 30 days testosterone cypionate 200 mg IM QWEEK HPI Comments Details: 39-year-old male patient with a previous history of a ventral hernia repaired 03/11/2023 with an 8 cm Ventralex mesh now presenting with a 2 month history of a new lump located in the umbilicus. This was 1st noted while doing sit-ups. He has intermittent episodes of increased pain swelling at the umbilicus but denies nausea, vomiting, or recent bowel changes. He notes the hernia to decrease in size when in bed or applying light pressure. He has been wearing an abdominal binder which does seem to help his symptoms. He recently acquired a puppy who is quite active and strong. [facility] Medical History Essential hypertension Acromioclavicular (AC) joint injury Opioid dependence Erectile dysfunction Major depression Gynecomastia Testicular hyperfunction PTSD (post-traumatic stress disorder) Sleep apnea GERD (gastroesophageal reflux disease) Raynauds disease Bipolar disorder Surgical History H/O ventral hernia repair (03/11/23) Hx of toe surgery Social History Alcohol intake: never Patient Tobacco Use Status: Current everyday Tobacco user Tobacco use type: Cigarette Cigarettes Per Day: 10 Current occupational status: unemployed Current occupation: right hand dominant Review of Systems Const All systems reviewed & are unremarkable except as noted in HPI and below Physical Exam Vital Signs: Last Vital Signs Pulse 80 10/11/24 10:20 BP 132/68 10/11/24 10:20 BMI result Body Mass Index 35.9 Const General: well developed Nutritional Appearance: well nourished Orientation/consciousness: patient oriented x3 HEENT Head: Yes normocephalic and Yes atraumatic Resp Effort & Inspection: normal respiratory effort, no audible wheezes, no cough and no respiratory distress GI Other: Well-healed midline incision located just above the umbilicus. At the umbilicus a palpable hernias identified which increases in size with Valsalva maneuvers but easily reduces with light pressure. The hernia measures approximately 4 cm in diameter. Abdomen is otherwise soft and nondistended. Skin Other: Warm, dry, no rash Neuro General: patient oriented x3 Extrem Other: No cyanosis, clubbing or edema. Assessment & Plan Assessment & Plan (1) Umbilical hernia: Code(s): K42.9 - Umbilical hernia without obstruction or gangrene Category: Medical Qualifiers: Obstruction and gangrene presence: without obstruction or gangrene Qualified Code(s): K42.9 - Umbilical hernia without obstruction or gangrene Plan 39-year-old male patient with a previous history of a ventral hernia repair in 2022 now presenting with a new umbilical hernia which is increasing in size with heavy lifting but reduces with light pressure. On examination he has a proximally 4 cm umbilical hernia which is reducible. I recommended a repair of this umbilical hernia on an elective basis. He will think about his options and call when he is ready to schedule the surgery. He understands that he will need approximately 1 month a restricted lifting following the repair. He is welcome to call for any questions. Coding Level of Care Code Est Pt Level 3 (17569) Diagnoses Umbilical hernia without obstruction and without gangrene K42.9 Obstruction and gangrene presence: without obstruction or gangrene
[2024-10-11 10:20] VITALS: BP 132/68; PULSE 80; BMI 35.9
== END 2024-10-11 10:50 | disposition home or self-care (01) ==
LOC: HO.HGS 10:10
PROVIDERS: PCP Nurse Practitioner Family; Referring Provider Surgery; Visit Provider Surgery
DX: K42.9 Umbilical hernia without obstruction or gangrene (principal)
CPT/HCPCS: 99213

== ENCOUNTER → 2024-10-11 10:10 | Outpatient (BNVA) | payer OTHER, SELFPAY | PROVIDERS: PCP Nurse Practitioner Family; Referring Provider Internal Medicine Endocrinology, Diabetes & Metabolism; Visit Provider Surgery | DX: K42.9 Umbilical hernia without obstruction or gangrene (principal) | CPT/HCPCS: 99212 ==

== ENCOUNTER 2024-11-16 10:04 | Day surgery (SDC) | payer OTHER, SELFPAY ==
[2024-11-14 08:08] VITALS: BMI 40.0
[2024-11-16] VITALS (7 sets, daily range): BP systolic 102–148; BP diastolic 42–89; PULSE 72–83; RESP 14–18; TEMP 36.8–37.2; O2SAT 94–97; BMI 34.9
--- NOTE | 2024-11-16 10:42 | MHC.SHP ---
Pre-Procedural Eval Section A - 24 Hr Update-Section A only Date of Service: 11/16/24 The patient is an INPATIENT: No Changes since office visit: Yes Patient answered all questions; No Cold of Flu in the past 2 weeks, No New Medical Problems and No Changes in Medication The patient has been examined within 24 hours of the surgical procedure. The History & Physical has been completed within 30 days and I have reviewed it.: Yes Section B - Complete if H&P > 30 days Chief Complaint: Umbilical hernia without obstruction or gangrene Details of Present Illness: no changes Relevant Family History (Specify if Yes): No Relevant Social History: None Present Medications: see Short Stay Collaborative assessment Medical History: No relevant PMH History of Previous Operations: Relevant previous surgery/procedure and date(s) (previous hernia repair, now recurrent) Allergies: Allergies Allergy/AdvReac Type Severity Reaction Status Date / Time No Known Allergies Allergy Verified 11/16/24 10:20 Review of Systems Sugical H&P ROS: Negative: Constitution, Cardiovascular, Respiratory, Neurological, Psychiatric, Hem-Onc, Allergic/Immunologic, Gastrointestinal, Genitourinary, Musculoskeletal, Integumentary, Endocrine and Eyes/Ears/Nose/Throat Exam Surgical H&P Exam: Normal: HEENT, Normal: Heart, Normal: Lungs, Normal: Extremities, Normal: Abdomen, Normal: Skin and Normal: Neurological Plan Diagnosis/Plan: Unchanged I have reviewed the history and physical and performed a pertinent physical examination on my patient. No changes have occurred unless specified. Time Spent With Patient Time: Total time managing care of this patient today ____ minutes.
[2024-11-16] MEDS: Lactated Ringers 1,000 ML 100 ML IVCONT (10:47)
--- NOTE | 2024-11-16 11:01 | HO.ANESPROP2 ---
Documented by User: Isatu Danielle NP 11/14/24 15:10 HPI - Anesthesia Eval Consult details Narrative: 39yo M for Hernia Umbilical Reducible with mesh PMFSH Active Problems Active Problems: All Active Problems Umbilical hernia (Acute) Urinary hesitancy (Acute) Weak urinary stream (Acute) Hypogonadism in male (Acute) Fracture of left distal radius (Acute) Ventral hernia without obstruction or gangrene (Acute) Raynauds disease (Acute) Varicose veins of right lower extremity with inflammation (Acute) Erectile dysfunction (Acute) Past Medical History Medical History Essential hypertension Acromioclavicular (AC) joint injury Opioid dependence Erectile dysfunction Major depression Gynecomastia Testicular hyperfunction PTSD (post-traumatic stress disorder) Sleep apnea GERD (gastroesophageal reflux disease) Raynauds disease Bipolar disorder Surgical History Surgical History H/O ventral hernia repair (03/11/23) Hx of toe surgery History of Problems with Anesthesia: No Social History Social History Are you a primary transitions rn care coordinator to a significant other at home: No Do you presently have visiting nurse or other home services: No Alcohol intake: never Patient Tobacco Use Status: Current everyday Tobacco user Tobacco use type: Cigarette Cigarettes Per Day: 10 Use of substances other than those prescribed or required for medical reasons: No Have you been hit, kicked, punched, or otherwise hurt by someone within the past year? If so, by whom?: No Are you DNR?: No Advance Directives: No Advance Directives Information Provided: Yes Poor oral hygiene: No Current occupational status: unemployed Current occupation: right hand dominant Meds Allergies Allergy/AdvReac Type Severity Reaction Status Date / Time No Known Allergies Allergy Verified 11/16/24 10:20 Home Medications ?Medication ?Instructions ?Recorded ?Confirmed ?Last Taken ?Type gabapentin 300 mg capsule 300 mg PO TID 09/05/21 10/11/24 11/16/24 History calcium carbonate 500 mg PO DAILY 03/06/23 10/11/24 Unknown History hydroxyzine HCl 50 mg tablet 50 mg PO BID PRN Anxiety 03/06/23 10/11/24 Unknown History multivitamin 1 tab PO DAILY 03/06/23 10/11/24 Unknown History testosterone cypionate 200 mg/mL 200 mg IM QWEEK 03/06/23 10/11/24 Unknown History intramuscular oil methadone 150 03/10/23 10/11/24 11/16/24 History Exam Height,Weight and Vital Signs: Height 6 ft 2 in Weight 141.5 kg Assessment and Plan Assessment Anesthesia Assessment: Chart Reviewed Final Anesthetic Review History of Problems with Anesthesia: No Documented by User: Whit Romero DO 11/16/24 11:03 HPI - Anesthesia Eval Consult details Narrative: 39yo M for Hernia Umbilical Reducible with mesh On methadone 150 mg daily PMFSH Past Medical History Medical History Essential hypertension Acromioclavicular (AC) joint injury Opioid dependence Erectile dysfunction Major depression Gynecomastia Testicular hyperfunction PTSD (post-traumatic stress disorder) Sleep apnea GERD (gastroesophageal reflux disease) Raynauds disease Bipolar disorder Family History Family history of problems with anesthesia: No Surgical History Surgical History H/O ventral hernia repair (03/11/23) Hx of toe surgery History of Problems with Anesthesia: No Social History Social History Are you a primary transitions rn care coordinator to a significant other at home: No Do you presently have visiting nurse or other home services: No Alcohol intake: never Patient Tobacco Use Status: Current everyday Tobacco user Tobacco use type: Cigarette Cigarettes Per Day: 10 Use of substances other than those prescribed or required for medical reasons: No Have you been hit, kicked, punched, or otherwise hurt by someone within the past year? If so, by whom?: No Are you DNR?: No Advance Directives: No Advance Directives Information Provided: Yes Poor oral hygiene: No Current occupational status: unemployed Current occupation: right hand dominant Meds Allergies Allergy/AdvReac Type Severity Reaction Status Date / Time No Known Allergies Allergy Verified 11/16/24 10:20 Home Medications ?Medication ?Instructions ?Recorded ?Confirmed ?Last Taken ?Type gabapentin 300 mg capsule 300 mg PO TID 09/05/21 10/11/24 11/16/24 History calcium carbonate 500 mg PO DAILY 03/06/23 10/11/24 Unknown History hydroxyzine HCl 50 mg tablet 50 mg PO BID PRN Anxiety 03/06/23 10/11/24 Unknown History multivitamin 1 tab PO DAILY 03/06/23 10/11/24 Unknown History testosterone cypionate 200 mg/mL 200 mg IM QWEEK 03/06/23 10/11/24 Unknown History intramuscular oil methadone 150 03/10/23 10/11/24 11/16/24 History Exam Exam Date and Time: 11/16/24 1100 Height,Weight and Vital Signs: Height 6 ft 2 in Weight 141.5 kg Height 6 ft 2 in Weight 123.377 kg Vital Signs Temperature 99.0 F 11/16/24 10:30 Pulse Rate 80 11/16/24 10:30 Respiratory Rate 18 11/16/24 10:30 Blood Pressure 148/89 H 11/16/24 10:30 Pulse Oximetry 97 11/16/24 10:30 Oxygen Delivery Method Room Air 11/16/24 10:30 Temperature 99.0 F 11/16/24 10:30 Pulse Rate 80 11/16/24 10:30 Respiratory Rate 18 11/16/24 10:30 Blood Pressure 148/89 H 11/16/24 10:30 Pulse Oximetry 97 11/16/24 10:30 Oxygen Delivery Method Room Air 11/16/24 10:30 Airway Mallampati Class: I TM Dist: >3cm Neck ROM: Full Loose/Missing/Broken Teeth: Yes (multiple broken teeth) Heart: S1S2 Lungs: CTAB Assessment and Plan Assessment Anesthesia Assessment: Anesthesia Plan Discussed and Chart Reviewed Final Anesthetic Review Family History of Problems with Anesthesia: No History of Problems with Anesthesia: No NPO: Yes ASA Class: III Final Preanesthetic Review: No Changes in Pt Med Stat, Meds/Allgs Chart Reviewed, Consent Obtained/Reviewed and Anes Risks/Benef Reviewed Patient Risk: Intermediate Procedure Risk: Low Anesthetic Plan Anesthetic Plan: GA and Agree w/ Assess. and Plan Disposition: Standard PACU
--- NOTE | 2024-11-16 12:05 | P.OP_ITS ---
Operative Note Operative Note Date of Service: 11/16/24 Narrative: Preoperative diagnosis: Umbilical hernia Postoperative diagnosis: Same Procedure: Repair of umbilical hernia with mesh Surgeon: Brandt Coto MD Principal Technologist: La Alfredo PA-C; Arun Hackett PA-C, SHU Hardy Anesthesia: General LMA Indications for procedure: 39-year-old male patient with a prior history of a ventral hernia located just above the umbilicus now presenting with an umbilical hernia which is increasing in size and causing discomfort Operative findings: 2 cm umbilical hernia, reducible repaired using a 6.4 cm round Ventralex mesh Specimen: None Estimated blood loss: 2 mL Complications: None Procedure details: Patient was brought to the OR and placed in a supine position. After administering general anesthesia the patient's abdomen was prepped with ChloraPrep and draped in a sterile fashion. A surgical time-out was called the consent confirmed. Patient received preoperative antibiotics and Venodyne boots were in place. Local anesthesia consisting of 0.5% Sensorcaine was infiltrated in the midline around the umbilicus. A curvilinear incision was made in the midline extending just below the umbilicus. This was carried out through subcutaneous tissue and up to the hernia sac. The umbilical skin was dissected free from the fascia using electrocautery. A 2 cm fascial defect was identified. The contents of the umbilicus hernia were reduced and the fascial edges further defined using electrocautery. A preperitoneal space was then dissected using electrocautery and blunt dissection. Hemostasis was assured at all times using electrocautery. Defect measured approximately 2 cm. A 6.4 cm round Ventralex mesh was then obtained. This was then deployed within the preperitoneal space and secured in 4 quadrants using a 1 Tycron suture. Additional sutures were placed circumferentially to secure the mesh to the fascia. The fascia was then closed using interrupted [id number] 1 Tycron sutures. Prior to closing the fascia completely approximately 4 mL of Zenrelef was instilled below the fascia for postoperative pain relief. The fascia was then completely closed with a 1 Tycron suture. Wounds were then irrigated with saline solution and suctioned dry. Umbilical skin was then reattached to the fascia using a 3-0 Polysorb suture. Dermis was reapproximated using interrupted 3-0 Polysorb sutures. Skin was closed using a running subcuticular 4-0 Polysorb suture. Sterile dressings consisting of Steri-Strips, 4 x 4 gauze and Tegaderm were then applied. The patient tolerated the procedure well. Sponge, instrument, and needle counts reported as correct. The patient was transferred to PACU in stable condition.
[2024-11-16] MEDS: oxyCODONE HCl Immed Release 5 MG TABLET PO (13:09)
== END 2024-11-16 13:31 | disposition home or self-care (01) ==
PROVIDERS: PCP Internal Medicine Endocrinology, Diabetes & Metabolism; Visit Provider Surgery
PROC: (CPT 49591; principal; 2024-11-16 11:30)
DX: K42.9 Umbilical hernia without obstruction or gangrene (principal); Z87.19 Personal history of other diseases of the digestive system; K21.9 Gastro-esophageal reflux disease without esophagitis; I10 Essential (primary) hypertension; I73.00 Raynaud's syndrome without gangrene; G47.30 Sleep apnea, unspecified; F31.9 Bipolar disorder, unspecified; F43.10 Post-traumatic stress disorder, unspecified; F11.20 Opioid dependence, uncomplicated; Z87.828 Personal history of other (healed) physical injury and trauma; Z79.899 Other long term (current) drug therapy; Z98.890 Other specified postprocedural states; Z56.0 Unemployment, unspecified; F17.210 Nicotine dependence, cigarettes, uncomplicated
CPT/HCPCS: 49591; C1781; C9088; J0131; J0330; J0690; J1100; J1171; J1885; J2003; J2250; J2405; J2704; J2795; J3010

== ENCOUNTER → 2024-11-16 10:04 | Outpatient (BNV) | payer OTHER, SELFPAY | PROVIDERS: PCP Internal Medicine Endocrinology, Diabetes & Metabolism; Visit Provider Surgery | DX: K43.2 Incisional hernia without obstruction or gangrene (principal) | CPT/HCPCS: 49591 ==

== ENCOUNTER 2024-11-30 09:58 | Outpatient (AMB) | payer OTHER, SELFPAY ==
--- NOTE | 2024-11-30 10:01 | A.OFFVIS_ITS ---
Vital Signs 11/30/24 10:06 Weight 283 lb BP 131/70 Blood Pressure Location Rt brachial Position Sitting Pulse 65 Intake Visit Reasons: S/P umbilical hernia w/mesh Intake Note: Patient here s/p umbilical hernia w/mesh repair. Reports incision healing well. Patient c/o: steri strips still in place. No longer taking rx pain meds. Surgery: Dr. Coto~ 11-16-2024 Wound Care Technician Required: No Accompanied by: Self / Same As Patient Allergies No Known Allergies Allergy (Verified 11/30/24 10:05) HPI HPI S/P umbilical hernia w/mesh: Details: He had undergone repair of an umbilical hernia with mesh by Dr. Coto last 11/16/2024. He tolerated procedure well. He says he is doing well currently. He denies any significant pain. He has good oral intake. [facility] Medical History Essential hypertension Acromioclavicular (AC) joint injury Opioid dependence Erectile dysfunction Major depression Gynecomastia Testicular hyperfunction PTSD (post-traumatic stress disorder) Sleep apnea GERD (gastroesophageal reflux disease) Raynauds disease Bipolar disorder Surgical History H/O ventral hernia repair (03/11/23) Hx of toe surgery Social History Are you a primary day care center director to a significant other at home: No Do you presently have visiting nurse or other home services: No Alcohol intake: never Patient Tobacco Use Status: Current everyday Tobacco user Tobacco use type: Cigarette Cigarettes Per Day: 10 Current occupational status: unemployed Current occupation: right hand dominant Review of Systems Const Denies chills and Denies fever(s) Card Denies chest pain GI Denies abdominal pain Physical Exam Vital Signs: Last Vital Signs Pulse 65 11/30/24 10:06 BP 131/70 11/30/24 10:06 Const General: comfortable and no acute distress Resp Effort & Inspection: normal respiratory effort GI Other: Hernia repair site with a longitudinal midline incision, well healed, no evidence of infection, repair site appears intact Assessment & Plan Assessment & Plan (1) Umbilical hernia: Code(s): K42.9 - Umbilical hernia without obstruction or gangrene Category: Medical Qualifiers: Obstruction and gangrene presence: without obstruction or gangrene Qualified Code(s): K42.9 - Umbilical hernia without obstruction or gangrene Plan: Status post repair with mesh last 11/16/2024. He is doing very well. The repair site is intact. The incision is well healed. I removed his Steri-Strips He was concerned about a recurrence he did have a previous repair just above the umbilicus in the past. I did tell him that scar tissue from surgery may not be as strong as his original tissue so the reveal always be the risk of recurrence. I explained to him to not do any lifting of more than 20 lb or strenuous activities until after December 17. I also explained to him that he should gently ramp up his level of activities at that time He understands that can follow up with Dr. Coto down the line if he has any further concerns Coding Level of Care Code Global (99061) Diagnoses Umbilical hernia without obstruction and without gangrene K42.9 Obstruction and gangrene presence: without obstruction or gangrene
[2024-11-30 10:06] VITALS: BP 131/70; PULSE 65
== END 2024-11-30 10:17 | disposition home or self-care (01) ==
LOC: HO.HGS 09:59
PROVIDERS: PCP Nurse Practitioner Family; Visit Provider Surgery
DX: K42.9 Umbilical hernia without obstruction or gangrene (principal)
CPT/HCPCS: 99212

== ENCOUNTER → 2024-11-30 09:58 | Outpatient (BNVA) | payer OTHER, SELFPAY | PROVIDERS: PCP Nurse Practitioner Family; Visit Provider Surgery | DX: Z09 Encounter for follow-up examination after completed treatment for conditions other than malignant neoplasm (principal); Z87.19 Personal history of other diseases of the digestive system; Z98.890 Other specified postprocedural states | CPT/HCPCS: 99212 ==

== ENCOUNTER 2024-12-05 12:42 | Outpatient (AMB) | payer OTHER, SELFPAY ==
--- NOTE | 2024-12-05 12:54 | MHC.OFFVIS ---
Vital Signs 12/05/24 13:06 Height 6 ft 2 in Weight 289 lb BMI 37.1 BP 143/80 H Blood Pressure Location Lt brachial Position Sitting Pulse 84 Intake Visit Reasons: pain at hernia site Intake Note: Patient is seen in office for wound check, post umbilical hernia repair. 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 He denies any pain in the area of surgery in the periumbilical region. He is able to feel to lumps in the right groin which he is concerned may be a new hernia. One of the lumps he was able to feel previously and was told it was a lymph node but the 2nd lump is new and has some discomfort associated with it. His pain is approximately 2/10 in severity. [facility] Medical History Essential hypertension Acromioclavicular (AC) joint injury Opioid dependence Erectile dysfunction Major depression Gynecomastia Testicular hyperfunction PTSD (post-traumatic stress disorder) Sleep apnea GERD (gastroesophageal reflux disease) Raynauds disease Bipolar disorder Surgical History H/O ventral hernia repair (03/11/23) Hx of toe surgery Social History Are you a primary spiritual care coordinator to a significant other at home: No Do you presently have visiting nurse or other home services: No Alcohol intake: never Patient Tobacco Use Status: Current everyday Tobacco user Tobacco use type: Cigarette Cigarettes Per Day: 10 Current occupational status: unemployed Current occupation: right hand dominant Review of Systems Const All systems reviewed & are unremarkable except as noted in HPI and below Physical Exam Const General: no acute distress Nutritional Appearance: well nourished Orientation/consciousness: patient oriented x3 Limitations: no limitations Resp Effort & Inspection: normal respiratory effort GI Other: Soft and nondistended. Well-healed midline incision above the umbilicus without evidence of hernia recurrence. Examination of the right groin does reveal a palpable lymph node at the inguinal crease. Slightly higher and more lateral to the internal ring is noted a 2nd soft tissue mass either a lipoma or enlarged lymph node. There was no changes noted with Valsalva maneuvers therefore does not appear to be a inguinal hernia. Abdomen image: 1. Previously palpable lymph node at the inguinal crease 2. New palpable lump high in the right groin Neuro General: patient oriented x3 Extrem General: Yes no clubbing, cyanosis or edema Assessment & Plan Assessment & Plan (1) Ventral hernia without obstruction or gangrene: Code(s): K43.9 - Ventral hernia without obstruction or gangrene Category: Medical (2) Right groin mass: Code(s): R19.09 - Other intra-abdominal and pelvic swelling, mass and lump Category: Medical Plan 39-year-old male patient status post repair of a ventral hernia with mesh now returning with symptoms in the right groin. He reports pain in a palpable lump in the right groin since yesterday and was concerned about a new hernia developing. On examination the lower lump appears to be a lymph node while the upper more lateral lesion may either be a lipoma or an enlarged lymph node. I am unable to palpate a hernia. I recommended further evaluation of the palpable lumps with an ultrasound of the soft tissue. I will call him with the results once they are available. Coding Level of Care Code Est Pt Level 3 (16718) Diagnoses Ventral hernia without obstruction or gangrene K43.9 Right groin mass R19.09
[2024-12-05 13:06] VITALS: BP 143/80; PULSE 84; BMI 37.1
== END 2024-12-05 13:15 | disposition home or self-care (01) ==
LOC: HO.HGS 12:42
PROVIDERS: PCP Nurse Practitioner Family; Referring Provider Surgery; Visit Provider Surgery
DX: K43.9 Ventral hernia without obstruction or gangrene (principal); R19.09 Other intra-abdominal and pelvic swelling, mass and lump
CPT/HCPCS: 99213

== ENCOUNTER → 2024-12-05 12:42 | Outpatient (BNVA) | payer OTHER, SELFPAY | PROVIDERS: PCP Nurse Practitioner Family; Visit Provider Surgery | DX: R19.09 Other intra-abdominal and pelvic swelling, mass and lump (principal); Z87.19 Personal history of other diseases of the digestive system; Z98.890 Other specified postprocedural states | CPT/HCPCS: 99212 ==

== ENCOUNTER 2025-02-01 15:16 | Outpatient (REF) | payer OTHER, SELFPAY ==
--- NOTE | ~2025-02-01 | US_ITS ---
EXAMINATION: US RIGHT INGUINAL REGION, LIMITED/FOLLOW UP CLINICAL INFORMATION: Questionable mass. COMPARISON: None available. TECHNIQUE: Real-time ultrasound of the region of concern right inguinal with a linear transducer using grayscale and color Doppler technique. FINDINGS: There is no protrusion of the intra-abdominal organs into the right inguinal canal region. Nonspecific prominent lymph nodes, largest measures 3.2 cm. There is a fatty hilum. No gross fluid collections. US/US pelvic limited IMPRESSION: No inguinal hernia. Nonspecific prominent inguinal lymph nodes. Electronically signed by: Richard Moreland MD 02/01/2025 03:37 PM EDT
== END 2025-02-01 15:17 | disposition home or self-care (01) ==
LOC: HO.US 15:16
PROVIDERS: PCP Nurse Practitioner Family; Referring Provider Surgery; Visit Provider Surgery
DX: R19.09 Other intra-abdominal and pelvic swelling, mass and lump (principal)
CPT/HCPCS: 76857

== ENCOUNTER → 2025-02-01 15:19 | Outpatient (BNV) | payer OTHER, SELFPAY | PROVIDERS: PCP Nurse Practitioner Family; Visit Provider Radiology Diagnostic Radiology | DX: R59.0 Localized enlarged lymph nodes (principal) | CPT/HCPCS: 76857 ==

== ENCOUNTER 2025-03-22 15:01 | Emergency (ER) | payer OTHER, SELFPAY ==
[2025-03-22 15:14] VITALS: BP 138/65; PULSE 62; RESP 16; TEMP 36.6; O2SAT 97; BMI 32.6
--- NOTE | 2025-03-22 15:20 | ED.GENADULT ---
HPI - General Adult General Chief complaint: Animal Bite Stated complaint: Bee sting - R hand swelling Time Seen by Provider: 03/22/25 16:00 Source: patient, RN notes reviewed and old records reviewed Mode of arrival: ambulatory Limitations: no limitations History of Present Illness ED Provider: Rich HPI narrative: 39-year-old male presents for evaluation of right hand swelling. He reports being stung by a bee about 4 hours prior to arrival. He does not have any known allergy to bees. He reports 1 time previously he has had cellulitis from a bee sting. He was stung on his right 4th finger he reports rather rapid progression of edema to the right hand. He does not have any pain he took Benadryl 50 mg p.o. shortly after he was stung. Denies any fevers or chills no other complaints or concerns at this time Related Data Home Medications ?Medication ?Instructions ?Recorded ?Confirmed gabapentin 300 mg capsule 300 mg PO TID 09/05/21 10/11/24 calcium carbonate 500 mg PO DAILY 03/06/23 10/11/24 hydroxyzine HCl 50 mg tablet 50 mg PO BID PRN Anxiety 03/06/23 10/11/24 multivitamin 1 tab PO DAILY 03/06/23 10/11/24 testosterone cypionate 200 mg/mL 200 mg IM QWEEK 03/06/23 10/11/24 intramuscular oil methadone 150 03/10/23 10/11/24 Previous Rx's ?Medication ?Instructions ?Recorded tadalafil 5 mg tablet 5 mg PO DAILY sexual activity 90 03/15/24 days #90 tabs tamsulosin 0.4 mg capsule 0.4 mg PO BEDTIME 30 days #30 caps 03/15/24 cephalexin 500 mg tablet 500 mg PO Q8H #15 tabs 03/22/25 prednisone 20 mg tablet 40 mg (2 x 20 mg) PO DAILY #6 tabs 03/22/25 Allergies Allergy/AdvReac Type Severity Reaction Status Date / Time No Known Allergies Allergy Verified 03/22/25 15:17 Review of Systems Constitutional: Constitutional: Denies body ache(s), Denies chills and Denies fever(s) Eyes: Eyes: Denies itchy eyes ENT: Denies vertigo and Denies dizziness Cardiovascular: Cardiovascular: Denies chest pain and Denies dyspnea on exertion Respiratory: Respiratory: Denies cough and Denies dyspnea on exertion Gastrointestinal: Gastrointestinal: Denies abdominal pain, Denies nausea and Denies vomiting Musculoskeletal: Musculoskeletal: Denies arthralgias, Reports joint swelling and Denies limited range of motion Integumentary/Breasts: Skin/Breast: Reports erythema, Reports rash and Reports skin swelling Neurologic: Denies vertigo and Denies dizziness Allergic/Immunologic: Allergic/Immunologic: Denies itchy eyes PMFSH Past Medical History Medical History Essential hypertension Acromioclavicular (AC) joint injury Opioid dependence Erectile dysfunction Major depression Gynecomastia Testicular hyperfunction PTSD (post-traumatic stress disorder) Sleep apnea GERD (gastroesophageal reflux disease) Raynauds disease Bipolar disorder Surgical History H/O ventral hernia repair (03/11/23) Hx of toe surgery Social History Social History Are you a primary insurance healthcare consultant to a significant other at home: No Do you presently have visiting nurse or other home services: No Alcohol intake: never Patient Tobacco Use Status: Current everyday Tobacco user Tobacco use type: Cigarette Cigarettes Per Day: 10 Smoked in Last 30 Days: Yes Use of substances other than those prescribed or required for medical reasons: No Advance Directives: No Advance Directives Information Provided: No Current occupational status: unemployed Current occupation: right hand dominant Physical Exam ED Vital Signs: Vital Signs - 24 hr 03/22/25 15:14 03/22/25 16:23 Temperature 97.9 F 97.9 F Pulse Rate 62 62 Respiratory Rate 16 16 Blood Pressure 138/65 138/65 Pulse Oximetry 97 97 Oxygen Delivery Method Room Air Room Air BMI result Body Mass Index 32.6 Const General: healthy appearing, comfortable, no acute distress, alert and awake Nutritional Appearance: well nourished Orientation/consciousness: patient oriented x3 HENMT Head: Yes normocephalic and Yes atraumatic Eyes Eyelids: Yes eyelids normal Conjunctivae: conjunctivae normal Sclerae: sclerae normal Corneas: corneas normal Pupils: Equal, round and reactive pupils present EOM: EOMs intact bilaterally Neck Neck: Yes full ROM Resp Effort & Inspection: normal respiratory effort, able to speak in complete sentences and not labored Skin General skin exam: elasticity normal Neuro General: patient oriented x3 Cranial nerves: Yes Equal, round and reactive pupils present and Yes Bilaterally intact EOM present Cognition (Neuro): normal cognition Extrem Other: patient has a edema to the right hand globally with erythema on the dorsal surface. He is able to flex and extend all digits of the right hand including the wrist. No obvious urticaria Course Course Course Narrative: RME: 39 year male presents to ED for right hand swelling after a bee sting that occurred around 12:00. Patient denies any drooling, change in voice, lip swelling, neck swelling, chest pain shortness of breath or rash elsewhere. Exam positive for right hand swelling with redness and warmth. Benadryl Solu-Medrol and Pepcid ordered. Labs ordered Medications Administered Discontinued Medications Generic Name Dose Route Start Last Admin Trade Name Freq PRN Reason Stop Dose Admin Cephalexin HCl 500 mg 03/22/25 16:11 03/22/25 16:15 Cephalexin 500 Mg Capsule PO 03/22/25 16:12 500 mg ONCE ONE Administration Diphenhydramine HCl 25 mg 03/22/25 15:18 03/22/25 15:57 Diphenhydramine Hcl 50 Mg/Ml Vial IVPUSH 03/22/25 15:19 25 mg ONCE ONE Administration Famotidine 20 mg 03/22/25 15:16 03/22/25 15:58 Famotidine/Pf 20 Mg/2 Ml Vial IVPUSH 03/22/25 15:17 20 mg ONCE ONE Administration Methylprednisolone Sodium Succinate 125 mg 03/22/25 15:16 03/22/25 15:58 Methylprednisolone Sod Succ 125 Mg/2 Ml Vial IVPUSH 03/22/25 15:17 125 mg ONCE ONE Administration Medical Decision Making Medical Decision Making [facility] Narrative: 39-year-old male presents for evaluation of right hand swelling after being stung by a bee about 4 hours prior to arrival. He has no fevers, no pain, this is less likely cellulitic and given how rapidly progress this is most likely a localized allergic reaction to the bee sting venom. He was given Solu-Medrol, Benadryl and Pepcid prior to my evaluation. He has no systemic symptoms to suggest anaphylaxis, the patient can safely be discharged with a prednisone, instructions to use Benadryl every 4-6 hours and given that his hand was involved I did give him a 5 day course of prophylactic cephalexin though I do not feel he has an active infection Differential Diagnosis Differential Diagnoses: The differential diagnosis associated with the presentation includes allergic reaction Urticaria Cellulitis Tenosynovitis less likely Lab Data MDM Lab Attestation statement: I reviewed the patient's lab results. no leukocytosis or anemia. Normal platelet count. No significant electrolyte abnormalities warranting intervention. 03/22/25 15:50 03/22/25 15:50 Labs: Lab Results 03/22/25 Range/Units 15:50 WBC 9.3 (4.8-10.8) X10*3/uL RBC 4.94 (4.60-5.80) X10*6/uL Hgb 15.4 (14.0-18.0) g/dl Hct 45.1 (42.0-52.0) % MCV 91.3 (80.0-98.0) fL MCH 31.2 (27.0-33.0) pg MCHC 34.1 (31.0-36.0) g/dl RDW 12.4 (11.0-16.0) % Plt Count 293 (160-400) X10*3/uL MPV 8.9 L (9.4-12.4) fL Immature Gran % (Auto) 0.2 (0.0-0.4) % Neut % (Auto) 65.8 (45-73) % Lymph % (Auto) 24.7 (20-40) % Barton % (Auto) 7.3 (2-11) % Eos % (Auto) 1.7 (0-4) % Baso % (Auto) 0.3 (0-2) % Lymph # (Auto) 2.3 (1.2-4.9) X10*3/uL Barton # (Auto) 0.7 (0.1-1.2) X10*3/uL Eos # (Auto) 0.2 (0.0-0.4) X10*3/uL Baso # (Auto) 0.0 (0.0-0.2) X10*3/uL Abs Immat Gran (auto) 0.02 (0.00-0.03) X10*3/uL Absolute Neuts (auto) 6.1 (2.0-8.3) x10*3/uL Absolute Nucleated RBC 0.000 (0.0-0.012) X10*3/uL Nucleated RBC % (auto) 0.0 (0.0-0.2) /100WBC ESR 1 (0-15) MM/HR Sodium 139 (135-145) mmol/L Potassium 4.0 (3.3-5.1) mmol/L Chloride 102 (96-108) mmol/L Carbon Dioxide 31 H (22-29) mmol/L Anion Gap 10 L (12-20) BUN 15 (9-16) mg/dL Creatinine 1.22 (0.5-1.4) mg/dL Estim Creat Clear Calc 107.5 Estimated GFR > 60 Random Glucose 69 (60-115) mg/dL Lactic Acid 0.8 (0.5-2.0) mmol/L Calcium 9.4 (8.4-10.2) mg/dL Total Bilirubin 0.8 (0.0-1.0) mg/dL AST 39 H (5-37) U/L ALT 46 H (0-40) U/L Alkaline Phosphatase 71 (39-117) U/L C-Reactive Protein 0.42 (< or = 0.50) mg/dL Total Protein 6.6 (6.5-8.0) g/dL Albumin 4.4 (3.5-5.0) g/dL Discharge Plan Discharge Clinical Impression: Bee sting Patient Disposition: Home, Self-Care Instructions: Insect Bite or Sting (ED) Additional Instructions: Your swelling is most consistent with an allergic reaction due to the bee sting. I recommend taking Benadryl 25 mg every 4-6 hours. Take prednisone 40 mg daily for the next 3 days you may take the Keflex 3 times a day for the next 5 days to prevent infection return to the ER if you develop fevers, worsening pain or swelling or unable to move your hand Prescriptions: New cephalexin 500 mg tablet 500 mg PO Q8H Qty: 15 0RF prednisone 20 mg tablet 40 mg PO DAILY Qty: 6 0RF No Action hydroxyzine HCl 50 mg Tablet 50 mg PO BID PRN (Reason: Anxiety) testosterone cypionate 200 mg/mL oil 200 mg IM QWEEK multivitamin Tablet 1 tab PO DAILY calcium carbonate 500 mg calcium (1,250 mg) Tablet 500 mg PO DAILY methadone 150 gabapentin 300 mg capsule 300 mg PO TID tamsulosin 0.4 mg capsule 0.4 mg PO BEDTIME 30 Days Qty: 30 1RF tadalafil 5 mg tablet 5 mg PO DAILY 90 Days Qty: 90 0RF Interventions: ED Discharge Assessment Last Done: 03/22/25 16:23 Discharge Date/Time: 03/22/25 16:27 Print Language: Nam[place]ian
[2025-03-22 15:56] LABS: MANUAL DIFF FLAG NO
[2025-03-22 15:58] LABS: Hematocrit 45.1 % (42.0-52.0); Hemoglobin 15.4 g/dl (14.0-18.0); Imm Gran Abs Auto 0.02 X10*3/uL (0.00-0.03); Imm Gran Pct Auto 0.2 % (0.0-0.4); Lymphocytes Absolute Auto 2.3 X10*3/uL (1.2-4.9); Mean Corpuscular HGB Conc 34.1 g/dl (31.0-36.0); Mean Corpuscular Hemoglobin 31.2 pg (27.0-33.0); Mean Corpuscular Volume 91.3 fL (80.0-98.0); NRBC Abs Auto 0.000 X10*3/uL (0.0-0.012); NRBC Pct Auto 0.0 /100WBC (0.0-0.2); Platelet Count 293 X10*3/uL (160-400); Red Blood Count 4.94 X10*6/uL (4.60-5.80); White Blood Count 9.3 X10*3/uL (4.8-10.8)
--- NOTE | 2025-03-22 16:02 | PC.NURSE ---
Addendum entered by Meenu Bentley RN 03/22/25 16:02: Patient is a 39 year male presents to ED for right hand swelling after a bee sting that occurred around 12:00. Right hand swollen, red and warm. Alert and oriented. Lungs clear bilat. Respirations even and non-labored. Abdomen soft, non-tender with positive bowel sounds. No LE edema noted Original Note: Medical History Essential hypertension Acromioclavicular (AC) joint injury Opioid dependence Erectile dysfunction Major depression Gynecomastia Testicular hyperfunction PTSD (post-traumatic stress disorder) Sleep apnea GERD (gastroesophageal reflux disease) Raynauds disease Bipolar disorder
[2025-03-22 16:16] LABS: Alanine Aminotransferase 46 U/L (0-40); Albumin Level 4.4 g/dL (3.5-5.0); Alkaline Phosphatase 71 U/L (39-117); Anion Gap 10 (12-20); Aspartate Amino Transferase 39 U/L (5-37); Blood Urea Nitrogen 15 mg/dL (9-16); Calcium 9.4 mg/dL (8.4-10.2); Carbon Dioxide 31 mmol/L (22-29); Chloride 102 mmol/L (96-108); Creatinine Clr Calc Pharmacy 107.5; Estimated Glomerular Filt Rate > 60; Potassium 4.0 mmol/L (3.3-5.1); Sodium 139 mmol/L (135-145); Total Protein 6.6 g/dL (6.5-8.0)
[2025-03-22 16:23] VITALS: BP 138/65; PULSE 62; RESP 16; TEMP 36.6; O2SAT 97
== END 2025-03-22 16:27 | disposition home or self-care (01) ==
PROVIDERS: Physician Assistant; Emergency Provider Emergency Medicine; PCP Nurse Practitioner Family
DX: R22.31 Localized swelling, mass and lump, right upper limb (principal); T63.441A Toxic effect of venom of bees, accidental (unintentional), initial encounter; Y93.9 Activity, unspecified; Y92.9 Unspecified place or not applicable; Y99.8 Other external cause status; F17.210 Nicotine dependence, cigarettes, uncomplicated; Z79.899 Other long term (current) drug therapy
CPT/HCPCS: 36415; 80053; 83605; 85025; 85652; 86140; 87040; 96374; 96375; 99284; J1200; J1308; J2919

== ENCOUNTER 2025-05-02 11:29 | Outpatient (AMB) | payer OTHER, SELFPAY ==
--- NOTE | 2025-05-02 11:29 | A.OFFVIS_ITS ---
Intake Visit Reasons: medication follow up? 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 He is a patient of Dr. Morris. He is seen for the following urologic conditions - erectile dysfunction - lower urinary tract symptoms Follow-up trial of Flomax and tadalafil Helpful [facility] will not [facility] daily tadalafil Send prescription to [facility] discuss slow reduction and methadone now his testosterone is in more effective range [facility] patient Has been placed on testosterone for low T secondary to opiate impairment Does have T in 700 range with weekly injections This has improved his well being Does have occasional morning erections Erectile dysfunction Trial daily tadalafil Lower urinary tract symptoms Weak stream with urinary hesitancy PVR 0 in office Potential trapped prostate Trial Flomax PFSH Medical History Essential hypertension Acromioclavicular (AC) joint injury Opioid dependence Erectile dysfunction Major depression Gynecomastia Testicular hyperfunction PTSD (post-traumatic stress disorder) Sleep apnea GERD (gastroesophageal reflux disease) Raynauds disease Bipolar disorder Surgical History H/O ventral hernia repair (03/11/23) Hx of toe surgery Social History Are you a primary healthcare liaison to a significant other at home: No Do you presently have visiting nurse or other home services: No Alcohol intake: never Patient Tobacco Use Status: Current everyday Tobacco user Tobacco use type: Cigarette Cigarettes Per Day: 10 Current occupational status: unemployed Current occupation: right hand dominant Review of Systems Const Denies chills and Denies fever(s) Card Reports no additional complaints and Denies syncope Resp Denies cough GI Denies abdominal pain and Denies heartburn Reports as per HPI and Denies change in libido Neuro Denies syncope Psych Denies change in libido Endo Denies change in libido Physical Exam Const General: cooperative, healthy appearing, comfortable and no acute distress Orientation/consciousness: patient oriented x3 HEENT Face and sinus: Yes normal facial exam Mouth: moist mucous membranes Neck Neck: Yes normal visual inspection, Yes full ROM and Yes trachea midline Chest Chest palpation & inspection: normal inspection of the chest Resp Effort & Inspection: normal respiratory effort, able to speak in complete sentences and no respiratory distress GI Inspection: Yes normal to inspection Back/Spine/Pelvis Cervical Spine: normal cervical lordosis Thoracic/Lumbar Spine: thoracic and lumbar spine normal to inspection Skin General skin exam: no rashes or lesions noted Neuro General: patient oriented x3, gait normal, tone normal and moves all extremities Extrem General: Yes normal to inspection and Yes capillary refill normal Office Procedures Post Void Residual Post Residual Void Post Void Residual (PVR): 0 [id number] Void Residual by ultrasound Results AMB Urinalysis, Automated UA Leukoctes 0 Abiodun/uL Last Edit by Vandana Bush [facility] on 05/02/25 13:17 UA Nitrite Negative Last Edit by Vandana Bush [facility] on 05/02/25 13:17 UA Urobilinogen 0.2 mg/dL Last Edit by Vandana Bush [facility] on 05/02/25 13:17 UA Protein 15 mg/dL Last Edit by Vandana Bush [facility] on 05/02/25 13:17 UA pH 6.0 Last Edit by Vandana Bush [facility] on 05/02/25 13:17 UA Blood 0 Rommel/uL Last Edit by Vandana Bush [facility] on 05/02/25 13:17 UA Specific [place] 1.015 Last Edit by Vandana Bush [facility] on 05/02/25 13:1 7 UA Ketone Negative Last Edit by Vandana Bush [facility] on 05/02/25 13:17 UA Bilirubin 1 mg/dL Last Edit by Vandana Bush [facility] on 05/02/25 13:17 UA Glucose 0 mg/dL Last Edit by Vandana Bush [facility] on 05/02/25 13:17 Results Reviewed Results Reviewed: Laboratory Last Values Urine pH (Auto) 6.0 05/02/25 13:17 Specific [place] (Auto) 1.015 05/02/25 13:17 Urine Protein (Auto) 15 mg/dL 05/02/25 13:17 Glucose (UA)(Auto) 0 mg/dL 05/02/25 13:17 Urine Ketones (Auto) Negative 05/02/25 13:17 Urine Blood (Auto) 0 Rommel/uL 05/02/25 13:17 Urine Nitrite (Auto) Negative 05/02/25 13:17 Urine Bilirubin (Auto) 1 mg/dL 05/02/25 13:17 Urine Urobilinogen (Auto) 0.2 mg/dL 05/02/25 13:17 Leukocyte Esterase (Auto) 0 Abiodun/uL 05/02/25 13:17 Assessment & Plan Assessment & Plan (1) Erectile dysfunction: Code(s): N52.9 - Male erectile dysfunction, unspecified Category: Medical (2) Weak urinary stream: Code(s): R39.12 - Poor urinary stream Category: Medical (3) Urinary hesitancy: Code(s): R39.11 - Hesitancy of micturition Category: Medical Plan Six-month follow-up office Daily tadalafil and on demand provided Patient Instructions: This note is constructed using voice recognition software. While every effort has been made to ensure accuracy medicinal chemist errors may have been included. Imaging studies, laboratory and physical exam results were discussed and reviewed in detail. No major barriers to patient understanding were identified. An opportunity to ask questions regarding the treatment plan was provided. All questions were answered. The patient expressed understanding and agreement with the above treatment plan. The patient is aware they should contact our office by phone for worsening of their current condition or the appearance of new urologic symptoms. Compliance is encouraged with any medications and followup testing that is ordered. It is a privilege to participate in the urologic care of your patient. If you have any questions or concerns regarding treatment for the above conditions, or other urologic issues, please do not hesitate to contact me. The office telephone contact is [phone]. Sincerely, Dr Jose R Rodriguez MD, [facility] - Urology Compassionate Specialist Care for the Genitourinary System Coding Level of Care Code Est Pt Level 4 (96952) Complex EM visit Add On G2211 Diagnoses Erectile dysfunction N52.9 Weak urinary stream R39.12 Urinary hesitancy R39.11 CPT Codes Post Residual Void - PVR CPT Code: 23829-[id number] Void Residual by ultrasound ([id number])
--- OUTSIDE RECORDS SUMMARY | 2025-05-02 14:43 | XMS_ITS ---
Author Name [facility] Organization Unknown Care Team Organization Name Specialty Phone Email Start Date End Da te [facility] Noreen Rowe MD Primary Care 05/13/2022 02/22/2024
== END 2025-05-02 12:23 | disposition home or self-care (01) ==
LOC: HO.HUSH 11:30
PROVIDERS: PCP Nurse Practitioner Family; Visit Provider Urology
DX: N52.9 Male erectile dysfunction, unspecified (principal); R39.12 Poor urinary stream; R39.11 Hesitancy of micturition
CPT/HCPCS: 99214

== ENCOUNTER → 2025-05-02 11:29 | Outpatient (BNVA) | payer OTHER, SELFPAY | PROVIDERS: PCP Nurse Practitioner Family; Visit Provider Urology | DX: R39.12 Poor urinary stream (principal); R39.11 Hesitancy of micturition; N52.9 Male erectile dysfunction, unspecified | CPT/HCPCS: 51798; 99212 ==

== ENCOUNTER 2025-06-05 14:10 | Emergency (ER) | payer OTHER, SELFPAY ==
--- NOTE | 2025-06-05 14:13 | ED.GENADULT ---
HPI - General Adult General Chief complaint: Wound/Laceration Stated complaint: hand lac Time Seen by Provider: 06/05/25 14:17 Source: patient, RN notes reviewed and old records reviewed Mode of arrival: ambulatory Limitations: no limitations History of Present Illness ED Provider: [facility] narrative: Patient is a 40-year-old right-hand dominant male presenting to the emergency department with complaint of laceration to left hand. States that he was in his garage around 930, 10:00 a.m. last night moving things around when he accidentally cut his hand on the crimper operator. Has large laceration to palmar aspect of left hand. Denies any weakness, numbness, tingling, decreased range of motion to fingers. Also reports some superficial abrasions to left thumb. Reports that Tdap is up-to-date within the past year. complaint: Laceration Related Data Home Medications ?Medication ?Instructions ?Recorded ?Confirmed gabapentin 300 mg capsule 300 mg PO TID 09/05/21 10/11/24 calcium carbonate 500 mg PO DAILY 03/06/23 10/11/24 hydroxyzine HCl 50 mg tablet 50 mg PO BID PRN Anxiety 03/06/23 10/11/24 multivitamin 1 tab PO DAILY 03/06/23 10/11/24 testosterone cypionate 200 mg/mL 200 mg IM QWEEK 03/06/23 10/11/24 intramuscular oil methadone 150 03/10/23 10/11/24 Previous Rx's ?Medication ?Instructions ?Recorded cephalexin 500 mg tablet 500 mg PO Q8H #15 tabs 03/22/25 prednisone 20 mg tablet 40 mg (2 x 20 mg) PO DAILY #6 tabs 03/22/25 tadalafil 5 mg tablet 5 mg PO DAILY sexual activity 90 05/02/25 days #90 tabs tamsulosin 0.4 mg capsule 0.4 mg PO BEDTIME #90 caps 05/02/25 Allergies Allergy/AdvReac Type Severity Reaction Status Date / Time No Known Allergies Allergy Verified 06/05/25 14:18 Review of Systems Review of Systems: as per hpi Yes all other systems are reviewed and are negative Constitutional: Constitutional: Reports as per HPI PMFSH Past Medical History Medical History Essential hypertension Acromioclavicular (AC) joint injury Opioid dependence Erectile dysfunction Major depression Gynecomastia Testicular hyperfunction PTSD (post-traumatic stress disorder) Sleep apnea GERD (gastroesophageal reflux disease) Raynauds disease Bipolar disorder Surgical History H/O ventral hernia repair (03/11/23) Hx of toe surgery Social History Social History Are you a primary care analyst to a significant other at home: No Do you presently have visiting nurse or other home services: No Alcohol intake: never Patient Tobacco Use Status: Current everyday Tobacco user Tobacco use type: Cigarette Cigarettes Per Day: 10 Advance Directives: No Advance Directives Information Provided: No Do you have a plan to hurt others: No Plan Current occupational status: unemployed Current occupation: right hand dominant Physical Exam ED Vital Signs: Vital Signs - 24 hr 06/05/25 14:14 Temperature 98 F Pulse Rate 86 Respiratory Rate 18 Blood Pressure 160/68 H Pulse Oximetry 98 Oxygen Delivery Method Room Air BMI result Body Mass Index 27.5 Vital signs have been reviewed and appear to be correct. Blood pressure normal. Heart rate normal. Respiratory rate normal. Temperature normal. Oxygen saturation normal. Const General: cooperative, healthy appearing and no acute distress Orientation/consciousness: oriented to person, oriented to place, oriented to time and patient oriented x3 Limitations: no limitations HENMT Head: Yes normocephalic and Yes atraumatic Ears: external ears normal General nose exam: Normal external nose present Face and sinus: Yes face symmetric Mouth: oropharynx normal and moist mucous membranes Throat: Yes uvula midline Eyes Pupils: Equal, round and reactive pupils present Neck Neck: Yes normal visual inspection and Yes supple Resp Effort & Inspection: normal respiratory effort and able to speak in complete sentences Auscultation: clear to auscultation bilaterally Cardio Rate: regular rate Rhythm: regular rhythm Heart sounds: S1 normal heart sound present and S2 normal heart sound present GI Palpation (GI): Soft to palpation and nontender Auscultation: normoactive bowel sounds General: Yes no CVA tenderness Back/Spine/Pelvis Back: no CVA tenderness Skin General skin exam: elasticity normal and turgor normal Neuro General: oriented to person, oriented to place, oriented to time, patient oriented x3, moves all extremities, no focal motor deficits and CN's II-XI intact bilaterally Cranial nerves: Yes Equal, round and reactive pupils present Cognition (Neuro): normal cognition Extrem General: Yes full ROM, Yes no pedal edema and Yes no calf tenderness Left upper extremity: hand Details: normal capillary refill, neuromotor exam normal, neurosensory exam normal, vascular exam Details: radial pulse present, ulnar pulse present and normal capillary refill, normal ROM of fingers and laceration palm palmar aspect Details: linear (6cm), involving subcutaneous tissue, with motor nerve function intact and with sensation intact; not actively bleeding and no foreign body present Psych Mental Status: mental status grossly normal Affect: normal affect Thought process: Normal thought process present Procedures Laceration Laceration 1: Site: hand (palm) Side (If applicable): left Size (cm): 6 Description: linear and clean Depth: simple, single layer Local Anesthetic: lidocaine 1% Amount of anesthesia used (mL): 7 Pre-repair: wound explored, irrigated extensively and deep structures intact Skin layer closed with: Prolene Size (cm): 5-0 Number of sutures: 11 Technique: simple, interrupted Medical Decision Making Medical Decision Making [facility] Narrative: Patient is a 40-year-old right-hand dominant male presenting to the emergency department with complaint of laceration to left hand. On exam patient is awake, A+Ox3, VS WNL, afebrile, normal neurological exam without focal deficits, physical exam findings as above. Given reported symptoms and physical exam findings, initial differential includes but is not limited to laceration. Neurovascularly intact, do not suspect tendon injury, no evidence of cellulitis. Laceration repaired as per procedure note. Wound care instructions and return precautions discussed at bedside. Patient verbalized understanding of and agreement with plan. Differential Diagnosis Differential Diagnoses: The differential diagnosis associated with the presentation includes as per mdm Admission/Observation Consideration of admission/observation: Escalation of care including admission/observation considered Patient would have been admitted to the hospital and transferred to appropriate facility had their clinical presentation warranted hospital admission. External Record Review External record reviewed: Inpatient record, Office record and Outpatient record Discharge Plan Discharge Clinical Impression: Laceration of hand Qualifiers: Encounter type: initial encounter Foreign body presence: without foreign body Laterality: left Qualified Code(s): S61.412A - Laceration without foreign body of left hand, initial encounter Patient Disposition: Home, Self-Care Instructions: Care For Your Stitches (DC), Laceration (DC), Stitches Removal (ED) Additional Instructions: You have been evaluated in the emergency department today for a laceration to your hand. Your laceration was repaired in the emergency department with 11 sutures. Please keep the area surrounding the laceration clean and dry and keep dressing in place for the next 24 hours. After that please change the dressing and assess the wound daily. Do not submerge the wound in water until the stitches has been removed and the wound has fully healed (no washing dishes, swimming, hot tubs, etc. and ESPECIALLY no outdoor water). Keep the area out of direct sunlight for the next 6 months to help prevent scarring. You should have the sutures removed in 7-10 days. If you develop fever, redness, swelling at the site of your laceration, or thick yellow drainage please come back to the ER for a wound check. Prescriptions: No Action tamsulosin 0.4 mg capsule 0.4 mg PO BEDTIME Qty: 90 1RF tadalafil 5 mg tablet 5 mg PO DAILY 90 Days Qty: 90 1RF hydroxyzine HCl 50 mg Tablet 50 mg PO BID PRN (Reason: Anxiety) testosterone cypionate 200 mg/mL oil 200 mg IM QWEEK multivitamin Tablet 1 tab PO DAILY calcium carbonate 500 mg calcium (1,250 mg) Tablet 500 mg PO DAILY methadone 150 cephalexin 500 mg tablet 500 mg PO Q8H Qty: 15 0RF prednisone 20 mg tablet 40 mg PO DAILY Qty: 6 0RF gabapentin 300 mg capsule 300 mg PO TID Print Language: Polish
[2025-06-05 14:14] VITALS: BP 160/68; PULSE 86; RESP 18; TEMP 36.6; O2SAT 98; BMI 27.5
[2025-06-05] MEDS: Lidocaine HCl 1 % MPF 5 ML VIAL 10 ML INFILTRATI (15:10)
== END 2025-06-05 15:17 | disposition home or self-care (01) ==
PROVIDERS: Emergency Provider Emergency Medicine Emergency Medical Services; PCP Internal Medicine Endocrinology, Diabetes & Metabolism
DX: S61.412A Laceration without foreign body of left hand, initial encounter (principal); W28.XXXA Contact with powered lawn mower, initial encounter; Y93.9 Activity, unspecified; Y92.008 Other place in unspecified non-institutional (private) residence as the place of occurrence of the external cause; Y99.9 Unspecified external cause status
CPT/HCPCS: 12002; 99281; 99284; J2003

== ENCOUNTER 2025-06-14 16:11 | Emergency (ER) | payer OTHER, SELFPAY ==
[2025-06-14 16:15] VITALS: BP 149/65; PULSE 68; RESP 20; TEMP 36.9; O2SAT 97; BMI 29.0
--- NOTE | 2025-06-14 16:22 | ED.WOUNDLAC ---
HPI - Wound/Laceration General Chief Complaint: Wound/Laceration Stated Complaint: Suture Removal Time Seen by Provider: 06/14/25 16:23 Source: patient and RN notes reviewed Mode of arrival: ambulatory Limitations: no limitations History of Present Illness ED Provider: Sharri King PA-C HPI narrative: This is a 40 year old male who presents to the emergency department for suture removal. Patient was initially seen on June 05 after accidentally lacerating his right palm on a hand spray operator. He states that he tolerated the suture as well however does report that he thinks that two of the sutures popped out. He denies any fevers, chills, drainage from the area, or increased pain. No other complaints or concerns at this time. Related Data Home Medications ?Medication ?Instructions ?Recorded ?Confirmed gabapentin 300 mg capsule 300 mg PO TID 09/05/21 10/11/24 calcium carbonate 500 mg PO DAILY 03/06/23 10/11/24 hydroxyzine HCl 50 mg tablet 50 mg PO BID PRN Anxiety 03/06/23 10/11/24 multivitamin 1 tab PO DAILY 03/06/23 10/11/24 testosterone cypionate 200 mg/mL 200 mg IM QWEEK 03/06/23 10/11/24 intramuscular oil methadone 150 03/10/23 10/11/24 Previous Rx's ?Medication ?Instructions ?Recorded cephalexin 500 mg tablet 500 mg PO Q8H #15 tabs 03/22/25 prednisone 20 mg tablet 40 mg (2 x 20 mg) PO DAILY #6 tabs 03/22/25 tadalafil 5 mg tablet 5 mg PO DAILY sexual activity 90 05/02/25 days #90 tabs tamsulosin 0.4 mg capsule 0.4 mg PO BEDTIME #90 caps 05/02/25 cephalexin 500 mg capsule 500 mg PO QID 7 days #28 caps 06/14/25 doxycycline hyclate 100 mg capsule 100 mg PO BID 7 days #14 caps 06/14/25 Allergies Allergy/AdvReac Type Severity Reaction Status Date / Time No Known Allergies Allergy Verified 06/14/25 16:20 [facility] Past Medical History Medical History Essential hypertension Acromioclavicular (AC) joint injury Opioid dependence Erectile dysfunction Major depression Gynecomastia Testicular hyperfunction PTSD (post-traumatic stress disorder) Sleep apnea GERD (gastroesophageal reflux disease) Raynauds disease Bipolar disorder Surgical History H/O ventral hernia repair (03/11/23) Hx of toe surgery Social History Social History Are you a primary medicare sales representative to a significant other at home: No Do you presently have visiting nurse or other home services: No Alcohol intake: never Patient Tobacco Use Status: Current everyday Tobacco user Tobacco use type: Cigarette Cigarettes Per Day: 10 Current occupational status: unemployed Current occupation: right hand dominant Physical Exam Exam: Exam: General: Awake, alert, and oriented X3. No acute distress. HEENT: Normal inspection CVS: Normal heart rate and rhythm. Pulses normal. Respiratory: No respiratory distress Skin: See photo below: Left hand, palmar surface there is an approximate 3.5cm laceration noted with sutures placed. Mild wound dehiscence noted. with faint erythema noted. No drainge. Full ROM of the hand without difficulty. Extremities: see below Neuro: Oriented X 3. No motor deficit. No sensory deficit. Vital Signs: Vital Signs: Last Vital Signs Temp 98.4 F 06/14/25 16:40 Pulse 68 06/14/25 16:40 Resp 20 06/14/25 16:40 BP 149/65 H 06/14/25 16:40 Pulse Ox 97 06/14/25 16:40 O2 Del Method Room Air 06/14/25 16:40 BMI result Body Mass Index 29.0 Medical Decision Making Medical Decision Making [facility] Narrative: 40 y/o M here for suture removal. On arrival, vitals WNL. Wound appears as though multiple sutures popped out of wound. Wound has mild dehiscence where sutures no longer are in. Sutures were removed, pt tolerated well. Started on ABX and given wound care instructions as well as referral to wound care. He understands and agrees with plan. Pt stable for d.c. Differential Diagnosis Differential Diagnoses: The differential diagnosis associated with the presentation includes Wound dehiscence, cellulitis, laceration, wound cheeck Discharge Plan Discharge Clinical Impression: Laceration, Dehiscence of wound of skin, Encounter for removal of sutures Patient Disposition: Home, Self-Care Instructions: Wound Dehiscence (ED), Stitches Removal (ED) Additional Instructions: You were seen in the emergency department for a suture removal. We removed all your sutures today. Your wound appears to be slightly infected therefore we are covering you with antibiotics. Take full course even if your symptoms improve. You may also follow-up with the [facility] to ensure this wound he is well. Keep wound clean and dry. Keep wound covered. if any new or worsening symptoms occur including but not limited to increased swelling, drainage, please return for re-evaluation. Prescriptions: New cephalexin 500 mg capsule 500 mg PO QID 7 Days Qty: 28 0RF doxycycline hyclate 100 mg capsule 100 mg PO BID 7 Days Qty: 14 0RF No Action tamsulosin 0.4 mg capsule 0.4 mg PO BEDTIME Qty: 90 1RF tadalafil 5 mg tablet 5 mg PO DAILY 90 Days Qty: 90 1RF hydroxyzine HCl 50 mg Tablet 50 mg PO BID PRN (Reason: Anxiety) testosterone cypionate 200 mg/mL oil 200 mg IM QWEEK multivitamin Tablet 1 tab PO DAILY calcium carbonate 500 mg calcium (1,250 mg) Tablet 500 mg PO DAILY methadone 150 cephalexin 500 mg tablet 500 mg PO Q8H Qty: 15 0RF prednisone 20 mg tablet 40 mg PO DAILY Qty: 6 0RF gabapentin 300 mg capsule 300 mg PO TID [place] [facility] [place] Group] Interventions: ED Discharge Assessment Last Done: 06/14/25 16:40 Discharge Date/Time: 06/14/25 17:45 Print Language: [place]ib[place]
[2025-06-14 16:40] VITALS: BP 149/65; PULSE 68; RESP 20; TEMP 36.9; O2SAT 97
== END 2025-06-14 17:45 | disposition home or self-care (01) ==
LOC: HO.ED 17:45
PROVIDERS: Emergency Provider Emergency Medicine; PCP Internal Medicine Endocrinology, Diabetes & Metabolism
DX: T81.33XA Disruption of traumatic injury wound repair, initial encounter (principal); Y83.8 Other surgical procedures as the cause of abnormal reaction of the patient, or of later complication, without mention of misadventure at the time of the procedure; Y92.9 Unspecified place or not applicable; Z48.02 Encounter for removal of sutures
CPT/HCPCS: 99282; 99283